=== PATIENT | male | born 1970 | race Caucasian/White ===

== ENCOUNTER 2017-03-01 07:40 | Day surgery (SDC) | payer OTHER ==
[2017-03-01] VITALS (14 sets, daily range): BP systolic 98–133; BP diastolic 66–90; PULSE 58–74; TEMP 36.4–36.9; O2SAT 92–98; Ht 170.2 cm; Wt 82.0 kg
[~2017-03-01] VITALS: Ht 170.2 cm; Wt 82.0 kg
[2017-03-01] MEDS ORDERED: ASCO100T4 PO (08:27)
[2017-03-01] MEDS ORDERED: ACETCAP13 PO (08:27)
[2017-03-01] MEDS ORDERED: KRIL1000 PO (08:27)
[2017-03-01] MEDS ORDERED: ONE A DAY MENS PO (08:27)
[2017-03-01] MEDS ORDERED: [UNRECOGNIZED DRUG - OTHER] PO (08:27)
[2017-03-01] MEDS ORDERED: MAGNESIUM PO (08:27)
[2017-03-01] MEDS ORDERED: SIMV10TA2 PO (08:27)
--- NOTE | 2017-03-01 08:46 | History and Physical ---
History & Physical Date of Service Mar 01, 2017. History & Physical Reason for visit: Bronchoscopy HPI: Patient is 46-year-old male presenting to [facility] today for bronchoscopic evaluation of a ground-glass opacity found on the CTA of chest. The patient is also LOR[facility] [place] as an outpatient. He has history of COPD and increasing shortness of breath. Patient was evaluated by his primary care provider on 12/29/2016 and was noted to have continued chronic cough and shortness Breath. The patient was placed on Breo and Spiriva. He discontinued those medications because he felt that they were not helping his cough and shortness of breath, and that the cost was high. Patient did have an EKG during his visit on 12/06/2016 which showed normal sinus rhythm with nonspecific ST changes his primary care office. Chest x-ray showed suboptimal inspiration with minimal opacities in the bilateral bases. The patient that time completed a course of azithromycin. Pulmonary function study completed on 02/01/2017. Pre Post FVC 1.81/49% 1.86/50% FEV1 1.6/54% 1.69/55% FEV1/FVC ratio 83% 91% TLC 2.08/36% DLCO 33% Alpha 1 antitrypsin was reportedly negative. The patient is a former smoker. He smokes 1 pack per day beginning at age 19 and quit in 2014. He also had second hand smoke exposure as a child due to parents smoking in the house. 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 The patient also reportedly had a 6 minutes walk test at the primary care office during which time his SA O2 was 79% post ambulation. He was noted to have improvement with oxygen supplementation. Cody Celis PA-C recommended that this patient also have Legionella Ag completed, CTA of the chest to R/O PE, and upper GI for concerns of aspiration while eating. CTA of the chest showed ground glass opacification bilaterally with mediastinal and hilar adenopathy. Upper GI study showed diffuse moderate patulousness of the esophagus, some loss of normal peristaltic activity with dysmotility and delayed esophageal emptying , and no evidence of hiatal hernia or GERD. Allergies: No known drug allergies Past medical history: COPD, shortness breath Social history: Former smoker Current meds: ProAir resp click Simvastatin 10 mg daily Physical Exam: General: Patient is awake, alert, cooperative, and in no acute distress. Head: Normocephalic, Atraumatic. ENT: PERRLA, No discharge, EOMI, Sclera normal Neck: Normal ROM. Trachea midline. Respiratory: No respiratory distress. No accessory muscle use. Mild diffuse crackles/rhonchi throughout Cardiovascular: Regular rate and rhythm. Extremities: No edema, cyanosis. Normal ROM Neuro: Alert, Oriented x 3. CN II-XII grossly intact. Sensation and motor function grossly intact. Psych: Mood and affect are normal. Assessment and plan: Patient with persistent cough, shortness of breath, and ground-glass opacity Plan for bronchoscopic evaluation today with BAL for diagnostic purposes.
--- NOTE | 2017-03-01 09:08 | History & Physical Bridge Note ---
H&P Re-Evaluation Bridge Note: I have examined the patient, reviewed the History & Physical and in the interval since the performance of the History & Physical I have noted the following changes of clinical significance: No changes noted
--- NOTE | 2017-03-01 09:09 | Procedure Note ---
Pre-Mod Sedation Assessment General Date of Moderate Sedation: Mar 01, 2017. Vital Signs: Vital Signs Past 12 Hours Date Time Temp Pulse Resp B/P (MAP) Pulse Ox O2 Delivery O2 Flow Rate FiO2 03/01/17 08:46 36.7 72 20 110/70 92 Room Air 03/01/17 07:57 36.7 72 20 110/70 (83) 92 Room Air Review Cardiovascular: regular rate, rhythm, no edema, no gallop, no JVD, no murmur Abdomen: normal bowel sounds, non tender, soft, no organomegaly, no pulsatile mass Lungs: + rhonchi Pre-Sedation Airway Assessment Oral Cavity: WNL Able to Visualize Vocal Cords: Yes Short Thick Neck: No Hx of Sleep Apnea: No Smoking Status: Former Smoker ASA Classification: Class II Procedure Planning Contraindications-for Mod Sed: None Yes Notes The planned sedation has been discussed with the patient and consent obtained. I have identified the patient, determined the appropriateness of sedation and have assessed the patient immediately prior to the procedure. All medicine(s) and interventions are by my order.
[2017-03-01] MEDS ORDERED: NURSING VERBAL MED ORDER ONE ×2 (09:30→10:00)
[2017-03-01] MEDS ORDERED: SODIUM CHLORIDE 0.9% 500ML 500 ML IV ONE (09:30)
--- NOTE | 2017-03-01 09:58 | Bronchoscopy Procedure Note ---
Bronchoscopy Procedure Note .Procedure: Bronchoscopy, conscious sedation, bronchial lavage left upper lobe and right upper lobe Consent: Obtained through the patient placed into the chart Pre-procedural diagnosis: Chronic cough with dyspnea on exertion Post-procedural diagnosis: Chronic cough or dyspnea on exertion Start time: 929 End time: 950 Total time: 21 minutes Analgesia: 2% liquid lidocaine: Via nebulizer 4% gel lidocaine: Via right naris 2% liquid lidocaine: Via bronchoscopy Sedation: Versed IV: 4 mg Fentanyl IV: 100 g Procedure: The Olympus video bronchoscope was used for this procedure and passed down through the right naris Right naris/posterior naris/posterior oropharynx: Anatomically within normal limits Glottis: Anatomically within normal limits Vocal cords: Proper abduction and abduction, anatomically within normal limits Subglottis/trachea/Kimberlee: Anatomically within normal limits Right bronchial tree: Right mainstem bronchus: Anatomically within normal limits Right upper lobe: Anatomically within normal limits Bronchus intermedius: Anatomically within normal limits Right middle lobe: Anatomically within normal limits Right lower lobe: Anatomically within normal limits Findings: No significant findings noted Left bronchial tree: Left mainstem bronchus: Anatomically within normal limits Left upper lobe: Anatomically within normal limits Lingula: Anatomically within normal limits Left lower lobe: Anatomically within normal limits Findings: No significant findings noted Bronchial alveolar lavage: Left upper lobe and right upper lobe EBL: None Complications: None Follow-up: ASU
[2017-03-01] MEDS ORDERED: MIDAZOLAM HCL 5 MG/ML 1 ML VIAL IV ONE (10:00)
[2017-03-01] MEDS ORDERED: FENTANYL CITRATE INJ 50 MCG/1 ML 2 ML VIAL IV ONE (10:00)
--- NOTE | 2017-03-01 11:07 | Discharge Instructions ---
Discharge Instructions Date of Service Mar 01, 2017. Admission Reason for Admission: Sob, Abnormal Find On Imaging, Copd Discharge Discharge Diagnosis / Problem: Persistent cough, SOB Discharge Goals Goal(s): Diagnostic testing Activity Recommendations Activity Limitations: resume your previous activity . Instructions / Follow-Up Instructions / Follow-Up [place] [facility] [place] Diet Patient's current hospital diet: Discharge Diet Recommended Diet: Regular Diet Pending Studies Studies pending at discharge: no Medical Emergencies . Who to Call and When: Medical Emergencies: If at any time you feel your situation is an emergency, please call 911 immediately. . Non-Emergent Contact Non-Emergency issues call your: Primary Care Provider . . "Provider Documentation" section prepared by Natasha Barone. . VTE Core Measure Inpt VTE Proph given/why not?: Treatment not indicated
== END 2017-03-01 12:10 | disposition home or self-care (01) ==
LOC: C.ACU 07:40
PROVIDERS: ATTEND Internal Medicine Critical Care Medicine
DX: R05 Cough (principal); R06.00 Dyspnea, unspecified; J44.9 Chronic obstructive pulmonary disease, unspecified; F17.200 Nicotine dependence, unspecified, uncomplicated; Z79.899 Other long term (current) drug therapy

== ENCOUNTER 2017-03-25 06:46 | Inpatient (IN) | payer OTHER ==
[2017-03-22 07:57] VITALS: BMI 28.0
[~2017-03-25] VITALS: Ht 167.6 cm; Wt 80.5 kg
[2017-03-25] VITALS (11 sets, daily range): BP systolic 101–124; BP diastolic 64–78; PULSE 53–67; TEMP 36.4–37; O2SAT 93–96; Ht 167.6 cm; Wt 80.5 kg
[~2017-03-25 06:46] MED LIST: ACETCAP13 PO; ASCO100T4 PO; GINS1CAP PO; KRIL1000 PO; LACTATED RINGER'S 1000ML 1,000 ML IV SCH; MAGN300C PO; MULT1CAP17 PO; SIMV10TA2 PO
[2017-03-25] MEDS ORDERED: ROCURONIUM BROMIDE 10 MG/ML 5 ML VIAL IV ONE (08:12)
[2017-03-25] MEDS ORDERED: LIDOCAINE HCL 2% 2 ML VIAL (20MG/ML) ONE (08:12)
[2017-03-25] MEDS ORDERED: PROPOFOL IV EMULSION 10 MG/ML 20 ML VIAL IV ONE (08:12)
[2017-03-25] MEDS ORDERED: ONDANSETRON INJ 2 MG/ML 2 ML VIAL ONE (08:12)
[2017-03-25] MEDS ORDERED: DEXAMETHASONE SOD INJ 4 MG/ML VIAL ONE (08:12)
[2017-03-25] MEDS ORDERED: MIDAZOLAM HCL 1 MG/ML 2ML VIAL ONE (08:13)
[2017-03-25] MEDS ORDERED: FENTANYL CITRATE INJ 50 MCG/1 ML 2 ML VIAL ONE (08:13)
[2017-03-25] MEDS ORDERED: SODIUM CHLORIDE 0.9% PF 50 ML VIAL ONE (09:12)
[2017-03-25] MEDS ORDERED: BUPIVACAINE LIPOSOME 1/3% 266 MG/20 ML VIAL INFIL ONE (09:12)
[2017-03-25] MEDS ORDERED: EpHEDrine SULFATE INJ 50 MG/ML AMP IV PRN (09:30)
[2017-03-25] MEDS ORDERED: PHENYLEPHRINE 100MCG/ML 5ML SYR IV PRN (09:30)
[2017-03-25] MEDS ORDERED: ATROPINE SULFATE 0.1 MG/ML 5ML SYR IV PRN (09:30)
[2017-03-25] MEDS ORDERED: ONDANSETRON INJ 2 MG/ML 2 ML VIAL IV PRN ×2 (09:30→10:45)
[2017-03-25] MEDS ORDERED: CEFAZOLIN SOD 1 GM VIAL ONE (09:36)
[2017-03-25] MEDS ORDERED: EpHEDrine SULFATE INJ 50 MG/ML AMP ONE (10:17)
[2017-03-25] MEDS ORDERED: NEOSTIGMINE METHYLSULFATE 5 MG/5 ML SYR ONE (10:17)
[2017-03-25] MEDS ORDERED: GLYCOPYRROLATE INJ 0.2 MG/ML VIAL ONE (10:17)
[2017-03-25] MEDS ORDERED: MoRPHine SULFATE 2 MG/ML CARP IV PRN (10:45)
[2017-03-25] MEDS ORDERED: ALBUTEROL HFA INHALER 8.5 GM INH ONE (10:59)
[2017-03-25] MEDS: HYDROmorphone INJ 2 MG/ML SYR/VIAL IV PRN ×2 (11:02→11:07)
[2017-03-25] MEDS ORDERED: HYDROmorphone INJ 1 MG/ML SYR ONE (11:02)
--- NOTE | 2017-03-25 11:14 | DIAGNOSTIC IMAGING REPORT ---
CHEST ONE VIEW PORTABLE CLINICAL HISTORY: lung bx. COMPARISON STUDY: No previous studies for comparison. FINDINGS: Mild cardiomegaly. Interstitial infiltrative change throughout both hemithoraces. Right-sided chest tube in position. No significant postprocedural right-sided pneumothorax. Minimal subcutaneous emphysema lower aspect right chest. IMPRESSION: No significant pneumothorax status post right chest biopsy. Right chest tube in good position. Diffuse bilateral ankle interstitial change. The above report was generated using voice recognition software. It may contain grammatical, syntax or spelling errors. Electronically signed by: Andrés Birmingham M.D. 03/25/2017 11:13 AM Dictated Date/Time: 03/25/2017 11:12 AM
--- NOTE | 2017-03-25 12:09 | OPERATIVE REPORT ---
DATE OF OPERATION: 03/25/2017 PREOPERATIVE DIAGNOSIS: Probable interstitial lung disease. POSTOPERATIVE DIAGNOSIS: Same. PROCEDURE: Right thoracoscopy with lung biopsy x3. SURGEON: Dr. Peterson. ALUMINUM MOLDING MACHINE OPERATOR: Dr. Godfrey Smith (Gillian OliverRoyal Oak was present for the entire case and handled the camera and was instrumental as the assistant engineer and closed the incision.) ANESTHESIA: General anesthesia endotracheal intubation using a single lumen tube. INDICATION FOR PROCEDURE AND FINDINGS: Collins Adan is a 46-year-old male who has had an acute change in his pulmonary function. He becomes hypoxic and quite dyspneic over the last several months. He was worked up and referred to me for a lung biopsy. On 03/25/2017, the patient underwent an uncomplicated right thoracoscopy. He had no adhesions. His lung looked grossly abnormal. He really had no lymphadenopathy. I performed biopsies of the right lower, middle and upper lobes respectively. He tolerated it well. DESCRIPTION OF PROCEDURE: The patient brought to the operating room, laid in supine position. General anesthesia induced and endotracheal intubation was performed with a single lumen tube. The patient was placed in left lateral decubitus position, right chest prepped, draped in the usual sterile fashion. After antibiotics have been infused prophylactically and appropriate timeout had been called, 5 mm incision was made at the fourth interspace. Carbon dioxide was infused. A 30 degree 5 mm scope was placed. There were no adhesions noted. I placed another 5 mm port about the eighth interspace posterior axillary line and a 12 mm port about the seventh interspace anteriorly just above the diaphragm. The right lower lobe was grasped and an Endo-YANIRA stapler fired several times to remove a good portion of it. Part was sent for culture. I did the same thing to the middle lobe and then the upper lobe. There was no significant bleeding and there was no air leak. A 24-Ugandan chest tube was placed in the anterior inferior incision directed towards the apex and held in place with heavy silk suture. A 4-0 Monocryl was used to close the incisions. He tolerated it well and was extubated in the room with negligible blood loss. I attest to the content of the Intraoperative Record and any orders documented therein. Any exception s are noted below.
[2017-03-25 12:38] LABS: HEMATOCRIT 42.1 % (42-52); MEAN CELL VOLUME 83.5 fL (80-100); MEAN CORPUSCULAR HEMOGLOBIN 29.6 pg (25-34); MEAN CORPUSCULAR HGB CONC 35.4 g/dl (32-36); MEAN PLATELET VOLUME 10.9 fL (7.4-10.4); PLATELET COUNT 207 K/uL (130-400); RED BLOOD COUNT 5.04 M/uL (4.7-6.1); WHITE BLOOD COUNT 11.37 K/uL (4.8-10.8)
[2017-03-25 12:50] LABS: PROTHROMBIN TIME (PATIENT) 10.6 SECONDS (9.0-12.0)
[2017-03-25 13:02] LABS: CREATININE 0.88 mg/dl (0.60-1.40)
--- NOTE | 2017-03-25 13:53 | Anesthesiology Progress Note ---
Anesthesia Post Op Note Date & Time Mar 25, 2017 at 13:52 Vital Signs Pain Intensity: 2.0 Vital Signs Past 12 Hours Date Time Temp Pulse Resp B/P (MAP) Pulse Ox O2 Delivery O2 Flow Rate FiO2 03/25/17 13:46 53 18 124/78 (93) 94 Nasal Cannula 2.0 03/25/17 12:45 37.0 59 16 112/74 (87) 93 Nasal Cannula 2.0 03/25/17 12:20 37.0 60 16 115/72 (86) 95 Nasal Cannula 2.0 03/25/17 11:45 94 Nasal Cannula 2.0 03/25/17 11:45 36.7 64 14 115/73 (87) 94 Nasal Cannula 2.0 03/25/17 11:45 94 Nasal Cannula 2.0 03/25/17 11:30 36.6 62 18 122/75 94 Nasal Cannula 2 03/25/17 11:20 63 16 114/82 97 Nasal Cannula 2 03/25/17 11:10 68 18 122/74 99 Oxymask 10 03/25/17 11:00 67 16 130/78 98 Oxymask 10 03/25/17 10:56 36.7 69 20 115/70 100 Oxymask 10 03/25/17 07:10 36.4 66 20 114/78 (90) 95 Room Air Diffusion Mask Notes Mental Status: alert / awake / arousable, participated in evaluation Pt Amnestic to Procedure: Yes Nausea / Vomiting: adequately controlled Pain: adequately controlled Airway Patency, RR, SpO2: stable & adequate BP & HR: stable & adequate Hydration State: stable & adequate Anesthetic Complications: no major complications apparent
[2017-03-25] MEDS: KETOROLAC TROMETHAMINE 15 MG/ML VIAL IV. SCH ×2 (13:55→21:30)
[2017-03-25] MEDS: METOCLOPRAMIDE HCL INJ 5 MG/ML 2 ML VIAL IV. SCH ×2 (13:55→21:30)
[2017-03-25] MEDS: ACETAMINOPHEN IV 1,000 MG in EMPTY BAG 0 ML IV SCH ×2 (14:00→21:31)
[2017-03-25] MEDS: D5W AND 1/2NSS 1,000 ML IV SCH ×2 (14:01→21:31)
[2017-03-25] MEDS: CEFAZOLIN IV 2,000 MG in SYRINGE 0 ML IV SCH (18:37)
[2017-03-25] MEDS: OXYCODONE HCL IR 5 MG TAB (IMMEDIATE RELEASE) PO PRN (19:09)
[2017-03-25] MEDS ORDERED: SIMVASTATIN 10 MG TAB PO SCH (21:00)
[2017-03-25] MEDS: ACETYLCYSTEINE 600 MG CAP PO SCH (21:27)
[2017-03-25] MEDS: DOCUSATE SODIUM 100 MG CAP PO SCH (21:27)
[2017-03-25] MEDS: ASCORBIC ACID 500 MG TAB PO SCH (21:28)
[2017-03-26] MEDS: CEFAZOLIN IV 2,000 MG in SYRINGE 0 ML IV SCH (01:59)
[2017-03-26 02:03] VITALS: O2SAT 91
[2017-03-26 03:58] VITALS: BP 112/69; PULSE 57; TEMP 36.7; O2SAT 82; O2SAT 94
[2017-03-26] MEDS: ACETAMINOPHEN IV 1,000 MG in EMPTY BAG 0 ML IV SCH (05:35)
[2017-03-26] MEDS: METOCLOPRAMIDE HCL INJ 5 MG/ML 2 ML VIAL IV. SCH (05:35)
[2017-03-26] MEDS: KETOROLAC TROMETHAMINE 15 MG/ML VIAL IV. SCH (05:36)
[2017-03-26 05:47] VITALS: BP 121/71; PULSE 64; TEMP 37.2; O2SAT 93
[2017-03-26] MEDS: OXYCODONE HCL IR 5 MG TAB (IMMEDIATE RELEASE) PO PRN ×2 (06:07→10:57)
[2017-03-26 06:52] VITALS: BP 117/65; PULSE 80; TEMP 37; O2SAT 96
[2017-03-26] MEDS: D5W AND 1/2NSS 1,000 ML IV SCH (06:58)
--- NOTE | 2017-03-26 07:40 | DIAGNOSTIC IMAGING REPORT ---
CHEST ONE VIEW PORTABLE HISTORY: Lung biopsy. COMPARISON: Chest 03/25/2017. FINDINGS: Right-sided chest tube is unchanged in position. There is suture material within the right upper lobe. Low lung volumes. Improved aeration within the bilateral airspace opacities. The heart is stable in size. No definite pneumothorax. IMPRESSION: 1. Improved aeration within the bilateral airspace opacities. 2. No definite pneumothorax. Right-sided chest tube remains unchanged in position. Electronically signed by: Maciel Santiago M.D. 03/26/2017 7:38 AM Dictated Date/Time: 03/26/2017 7:37 AM
[2017-03-26] MEDS ORDERED: NON-FORMULARY MEDICATION (Krill Oil 1,000 MG) PO SCH (09:00)
[2017-03-26] MEDS ORDERED: GINSENG 100 MG PO SCH (09:00)
[2017-03-26] MEDS ORDERED: MAGNESIUM OXIDE 400 MG TAB PO SCH (09:00)
[2017-03-26] MEDS ORDERED: ENOXAPARIN 40 MG/0.4 ML SYR SQ SCH (09:00)
[2017-03-26] MEDS ORDERED: CEROVITE ADV FORMULA TAB PO SCH (09:00)
[2017-03-26] MEDS ORDERED: RXC5 PO (09:17)
--- NOTE | 2017-03-26 09:17 | DIAGNOSTIC IMAGING REPORT ---
CHEST ONE VIEW PORTABLE HISTORY: Status post chest tube removal. COMPARISON: Chest 03/26/2017. FINDINGS: The right-sided chest tube has been removed. There is a tiny right apical pneumothorax which measures a pleural gap of 5 mm. There are low lung findings. The heart remains mildly enlarged. No pleural effusions. Bilateral airspace opacities persist. IMPRESSION: 1. Tiny right apical pneumothorax status post removal of the right-sided chest tube. 2. Bilateral airspace opacities persist. Electronically signed by: Maciel Santiago M.D. 03/26/2017 9:15 AM Dictated Date/Time: 03/26/2017 9:14 AM
--- NOTE | 2017-03-26 09:20 | Discharge Instructions ---
Discharge Instructions Date of Service Mar 26, 2017. Admission Reason for Admission: Lung Nodule Discharge Discharge Diagnosis / Problem: Probable interstitial lung disease. Discharge Goals Goal(s): Learn about illness (Retuen to office next week to get pathology results.) Activity Recommendations Activity Limitations: resume your previous activity . Instructions / Follow-Up Instructions / Follow-Up Remove dressing and shower on 03-29-17. Call Dr Peterson ([phone] ) and page him for any issues. Current Hospital Diet Patient's current hospital diet: Regular Diet Discharge Diet Recommended Diet: Regular Diet Procedures Procedures Performed: Right Video Assisted Thoracoscopy with Lung Biopsy Pending Studies Studies pending at discharge: yes List of pending studies: Pathology and microbiology results. Medical Emergencies . Who to Call and When: Medical Emergencies: If at any time you feel your situation is an emergency, please call 911 immediately. . Non-Emergent Contact Non-Emergency issues call your: Surgeon . "Provider Documentation" section prepared by Ney Peterson. . VTE Core Measure Inpt VTE Proph given/why not?: Enoxaparin (Lovenox)SQ, SCD's
[2017-03-26] MEDS: ASCORBIC ACID 500 MG TAB PO SCH (09:24)
[2017-03-26] MEDS: DOCUSATE SODIUM 100 MG CAP PO SCH (09:25)
[2017-03-26] MEDS: ACETYLCYSTEINE 600 MG CAP PO SCH (09:25)
--- NOTE | 2017-03-26 09:46 | DISCHARGE SUMMARY ---
DISCHARGE DIAGNOSES: 1. Probable interstitial lung disease. 2. Hypoxemia. HOSPITAL COURSE: This is a 46-year-old who has a rather acute onset of shortness of breath and x-ray changes consistent with interstitial lung disease. I brought him to the [facility] on 03/25/2017 and did an uncomplicated biopsy of the right middle, right lower and right upper lobes thoracoscopically. He tolerated this quite well. He really had a very little pain. He had a quiet night. His chest x-ray drained a very little air or fluid. I removed his chest x-ray on the following morning. His chest x-ray showed no evidence of pneumothorax or effusion. His incisions were clean. Pain control was good, although I did give him some oxycodone for pain. I will see him back in the office later this week to go over his pathology results. He is to call me should any issues arise. Wound care instructions were given.
[2017-03-26 10:48] VITALS: BP 117/65; PULSE 80; TEMP 37; O2SAT 96
== END 2017-03-26 11:30 | disposition home or self-care (01) | DRG 168 ==
LOC: C.ACU 06:46 → C.MSN 10:47 → ENRESERV 11:21
PROVIDERS: ADMIT Surgery; ATTEND Surgery
PROC: 0BBC4ZX Excision of Right Upper Lung Lobe, Percutaneous Endoscopic Approach, Diagnostic (ICD-10-PCS; principal; 2017-03-25 09:00)
PROC: 0BBF4ZX Excision of Right Lower Lung Lobe, Percutaneous Endoscopic Approach, Diagnostic (ICD-10-PCS; principal; 2017-03-25 09:00)
PROC: 0BBD4ZX Excision of Right Middle Lung Lobe, Percutaneous Endoscopic Approach, Diagnostic (ICD-10-PCS; principal; 2017-03-25 09:00)
DX: J84.9 Interstitial pulmonary disease, unspecified (principal); R09.02 Hypoxemia

== ENCOUNTER 2017-06-01 12:53 | Inpatient (IN) | payer OTHER ==
[~2017-06-01] VITALS: Ht 167.6 cm; Wt 80.0 kg
[~2017-06-01 12:53] MED LIST changes: -LACTATED RINGER'S 1000ML 1,000 ML IV SCH; +RXC5 PO
[2017-06-01 13:15] VITALS: Ht 167.6 cm; Wt 80.0 kg
[2017-06-01 14:26] LABS: HEMOGLOBIN 15.4 g/dL (14.0-18.0); MEAN CELL VOLUME 85.4 fL (80-100); MEAN CORPUSCULAR HEMOGLOBIN 29.9 pg (25-34); MEAN PLATELET VOLUME 10.2 fL (7.4-10.4); PLATELET COUNT 357 K/uL (130-400); RED CELL DISTRIBUTION WIDTH CV 15.9 % (11.5-14.5); RED CELL DISTRIBUTION WIDTH SD 49.5 fL (36.4-46.3)
--- NOTE | 2017-06-01 14:29 | DIAGNOSTIC IMAGING REPORT ---
CHEST ONE VIEW PORTABLE CLINICAL HISTORY: left sided pneumothorax, dx at [facility] pneumothorax COMPARISON STUDY: 03/26/2017 FINDINGS: Large left-sided pneumothorax. Maximum pleural separation is 5.5 cm. There is mild cardiac mediastinal silhouette shift to the right raise the possibility of a tension component. Diaphragms smooth. There is moderate crowding of the right parenchymal markings. IMPRESSION: Significant left-sided pneumothorax estimated at 75% left thoracic peripheral volume. Mild tension component with a slight cardiac mediastinal silhouette shift to the right. The above report was generated using voice recognition software. It may contain grammatical, syntax or spelling errors. Electronically signed by: Andrés Birmingham M.D. 06/01/2017 2:28 PM Dictated Date/Time: 06/01/2017 2:26 PM
[2017-06-01 14:44] LABS: CALCIUM 9.3 mg/dl (8.5-10.1); CREATININE 0.78 mg/dl (0.60-1.40); POTASSIUM 3.9 mmol/L (3.5-5.1)
[2017-06-01] MEDS ORDERED: XYLOCAINE 1%/SOD BICARB 20 ML VIAL INFIL ONE (14:51)
--- NOTE | 2017-06-01 15:07 | History and Physical ---
History & Physical Date of Service Jun 01, 2017. History & Physical H & P Dictated #[id number]
[2017-06-01] MEDS ORDERED: MoRPHine SULFATE 2 MG/ML CARP IV PRN (15:15)
[2017-06-01] MEDS ORDERED: ONDANSETRON INJ 2 MG/ML 2 ML VIAL IV PRN (15:15)
--- NOTE | 2017-06-01 15:24 | EMERGENCY ROOM VISIT NOTE ---
History First contact with patient: 13:49 Chief Complaint: SHORTNESS OF BREATH Stated Complaint: COLLAPSED LUNGS,SOB Nursing Triage Summary: pt PCP sent in for pneumothorax , pt states lung bx 03/27, increased sob X 1.5 weeks History of Present Illness The patient is a 46 year old male who presents to the Emergency Room with complaints of shortness of breath. The patient reports that he was sent here due to a "collapsed lung." The patient has a history of hypersensitivity pneumonitis and had a lung biopsy performed in March 2017. The patient states he has had increased shortness of breath for the past 10 days. He initially attributed this to a decrease in his steroid dosage from 60 mg prednisone daily to 50 mg prednisone daily. He contacted his assembler dc field ring, who ordered a flu swab and chest x-ray which was performed at [facility] today. He states that he was called by his assembler dc field ring and was told to go to the emergency department immediately. The patient does admit that he has had some left-sided back pain, which he thought was due to sleeping in an uncomfortable position. He saw his chiropractor for this. He has had increased shortness of breath with exertion and at rest. He previously had been on 2 L of oxygen at night, however now has been requiring 2 L of oxygen at all times. He denies any chest pain, cough, fevers or recent illness. He denies history of pneumothorax. Review of Systems A complete 10 point review of systems was reviewed with the patient with pertinent positives and negatives as per history of present illness. All else were negative. Past Medical/Surgical History Medical Problems: (1) Hyperlipidemia (2) Hypersensitivity pneumonitis (3) Interstitial lung disease Surgical Problems: (1) History of lung biopsy Social History Smoking Status: Never Smoker Marital Status: Housing Status: lives with family Current/Historical Medications Scheduled Amoxicillin & Pot Clavulanate (Augmentin 875-125 mg), 1 TAB PO Q12 Prednisone (Prednisone), 20 MG PO TID Simvastatin (Zocor), 10 MG PO DAILY Physical Exam Vital Signs Date Time Temp Pulse Resp B/P (MAP) Pulse Ox O2 Delivery O2 Flow Rate FiO2 06/01/17 14:31 95 3.0 06/01/17 14:05 95 06/01/17 13:52 78 24 149/113 95 Nasal Cannula 3.0 06/01/17 13:15 36.8 94 24 132/87 85 Room Air Physical Exam VITALS: Vitals are noted on the nurse's note and reviewed by myself. Vital signs stable. GENERAL: This is a 46-year-old male, in no acute distress, nondiaphoretic, well- developed well-nourished. SKIN: The skin was without rashes. EARS: External auditory canals clear, tympanic membranes pearly montoya without erythema or effusion bilaterally. EYES: Pupils equal round and reactive to light and accommodation. MOUTH: Mucous membranes moist. NECK: Supple without nuchal rigidity. HEART: Regular rate and rhythm without murmurs gallops or rubs. LUNGS: Coarse breath sounds throughout the right lung field. Significantly decreased breath sounds heard throughout the left lung field. NEURO: Patient was alert and oriented to person place and time. Medical Decision & Procedures ER Provider Diagnostic Interpretation: CHEST ONE VIEW PORTABLE CLINICAL HISTORY: left sided pneumothorax, dx at [facility] pneumothorax COMPARISON STUDY: 03/26/2017 FINDINGS: Large left-sided pneumothorax. Maximum pleural separation is 5.5 cm. There is mild cardiac mediastinal silhouette shift to the right raise the possibility of a tension component. Diaphragms smooth. There is moderate crowding of the right parenchymal markings. IMPRESSION: Significant left-sided pneumothorax estimated at 75% left thoracic peripheral volume. Mild tension component with a slight cardiac mediastinal silhouette shift to the right. Laboratory Results 06/01/17 14:15 Red Blood Count 5.15, Mean Corpuscular Volume 85.4, Mean Corpuscular Hemoglobin 29.9, Mean Corpuscular Hemoglobin Concent 35.0, Mean Platelet Volume 10.2 06/01/17 14:15 Test 06/01/17 14:15 White Blood Count 29.30 K/uL (4.8-10.8) Red Blood Count 5.15 M/uL (4.7-6.1) Hemoglobin 15.4 g/dL (14.0-18.0) Hematocrit 44.0 % (42-52) Mean Corpuscular Volume 85.4 fL (80-100) Mean Corpuscular Hemoglobin 29.9 pg (25-34) Mean Corpuscular Hemoglobin Concent 35.0 g/dl (32-36) Platelet Count 357 K/uL (130-400) Mean Platelet Volume 10.2 fL (7.4-10.4) RDW Standard Deviation 49.5 fL (36.4-46.3) RDW Coefficient of Variation 15.9 % (11.5-14.5) Neutrophils % (Manual) 82.1 % Lymphocytes % (Manual) 11.6 % Monocytes % (Manual) 2.7 % Myelocytes % 3.6 % Neutrophils # (Manual) 24.06 K/uL (1.4-6.5) Total Absolute Neutrophils 24.06 K/uL (1.4-6.5) Lymphocytes # (Manual) 3.40 K/uL (1.2-3.4) Total Absolute Lymphocytes 3.40 K/uL (1.2-3.4) Monocytes # (Manual) 0.79 K/uL (0.11-0.59) Myelocytes # 1.05 K/uL (0-0) Red Blood Cell Morphology Unremarkable Anion Gap 6.0 mmol/L (3-11) Est Creatinine Clear Calc Drug Dose 118.8 ml/min Estimated GFR () 126.3 Estimated GFR (Non- 109.0 BUN/Creatinine Ratio 34.0 (10-20) Calcium Level 9.3 mg/dl (8.5-10.1) Medications Administered Medications (Trade) Dose Ordered Sig/Thea Route Start Time Stop Time Status Last Admin Dose Admin Oxycodone HCl (Roxicodone Immediate Rel Tab) 5 mg Q6H PRN PO 06/01/17 15:15 06/15/17 15:14 06/01/17 21:04 5 MG ED Course The patient was evaluated as above. Labs were drawn and IV access was obtained. Chest x-ray was performed and read by radiology as above. Case was discussed with Dr. Peterson of cardiothoracic surgery. He will evaluate and admit the patient. Medical Decision Differential diagnosis includes pneumothorax, pneumonia, pulmonary embolism, among others. The patient is a 46-year-old male who presents today complaining of shortness of breath. The patient was seen at [facility] and apparently diagnosed with pneumothorax. X-ray here shows large left-sided pneumothorax with tension component. Cardiothoracic surgery was consulted and patient was seen by Dr. Peterson and Godfrey Cornell PA-C and chest tube was inserted. Patient will be admitted for further evaluation and care. The patient's case was reviewed with Dr. Templeton, ED attending physician, who agreed with my assessment and treatment plan. Medication Reconcilliation Current Medication List: was personally reviewed by me Blood Pressure Screening Patient's blood pressure: Elevated blood pressure Blood pressure disposition: Elevated BP felt to be situational Impression Primary Impression: Pneumothorax Departure Information Dispostion Admitted as an inpatient Referrals Cody Celis PA-C (PCP) Patient Instructions My [facility] Problem Qualifiers Primary Impression: Pneumothorax Pneumothorax type: spontaneous, tension Qualified Codes: J93.0 - Spontaneous tension pneumothorax
--- NOTE | 2017-06-01 15:32 | HISTORY & PHYSICAL EXAMINATION ---
DATE OF ADMISSION: 06/01/2017 REASON FOR ADMISSION: Shortness of breath. HISTORY OF PRESENT ILLNESS: This is a 46-year-old male known to our service. The patient underwent a right video-assisted thoracoscopy with lung biopsies in March of 2017. The patient had an uneventful postoperative course and was discharged home on postoperative day #1. The patient's pathology revealed chronic hypersensitivity pneumonitis for which he currently takes 60 mg of prednisone daily and he is followed by Cody Celis and Dr. Pepe Pino of [facility] pulmonary medicine. The patient says that over the past 5-10 days, he has had shortness of breath that is being getting progressively worse. He notes marked dyspnea on exertion with steps and even notes when he bends over he cannot take deep breaths. In addition, the patient reports pleuritic chest pain. Concerning other symptomatology, he denies any fever, shakes, chills. He denies any falls, head injuries, visual changes, tinnitus or sore throat. He denies any neck pain. He does note pleuritic chest pain, worse on the left side. He does note shortness of breath as noted above. He denies any cough or productive sputum. He denies abdominal pain, nausea, vomiting, diarrhea or dysuria. He has no history of stroke, seizure, migraine headache, anxiety, depression, DVT, or PE. In the Emergency Department, the patient did have imaging consisting of a chest x-ray which revealed the patient had a large left-sided pneumothorax. Labs consisted of a CBC where white blood cell count was 29.3; hemoglobin, hematocrit and platelet count were normal; chemistry profile was pending. We have been asked to see the patient for this pneumothorax. PAST MEDICAL HISTORY: Includes: 1. Chronic hypersensitivity pneumonitis. 2. Hypercholesterolemia. PAST SURGICAL HISTORY: Includes: 1. Right video-assisted thoracoscopy with lung biopsy in March 2017. 2. Umbilical herniorrhaphy. 3. Hemorrhoidectomy. ALLERGIES: He denies any medicine allergies. OUTPATIENT MEDICATIONS: Include: 1. Acetylcysteine 600 mg twice daily. 2. Vitamin C 200 mg twice daily. 3. Ginseng 100 mg daily. 4. Krill oil 1000 mg in the morning. 5. Magnesium 300 mg daily. 6. Multivitamin daily. 7. Oxycodone as needed for pain. 8. Zocor 10 mg daily. 9. Prednisone 60 mg daily. SOCIAL HISTORY: The patient is a former smoker, stating that he quit several years ago. FAMILY HISTORY: His father suffered from peripheral vascular disease, but he was also a smoker. REVIEW OF SYSTEMS: As noted above. PHYSICAL EXAMINATION: VITAL SIGNS: He is afebrile. Temperature 36.8, pulse 95 and regular, respirations are 24 and unlabored, blood pressure 149/113, pulse ox 95% on 3 liters. SKIN: Warm with good turgor. GENERAL: He is alert, he is oriented x3, in no distress. HEENT: Head is atraumatic, normocephalic. EYES: Pupils equal, round and reactive to light and accommodation. Extraocular motions are intact. EARS: Auditory acuity is grossly intact. NOSE: Nasal patency was intact. Sinuses are nontender. Mouth is moist without exudates. NECK: Supple. I did not appreciate any JVD. CARDIOVASCULAR: Regular rate and rhythm. LUNGS: Revealed markedly diminished breath sounds on the left. He was not using any accessory muscles to aid in respirations. ABDOMEN: Soft, nontender, nondistended. EXTREMITIES: Revealed no cyanosis or clubbing. NEUROLOGIC: Reveals he was able to move all 4 extremities and follow simple commands without noted focal deficits. DIAGNOSTIC DATA: As noted above. IMPRESSION: A 46-year-old male with left spontaneous pneumothorax. PLAN: We have obtained consent from the patient to perform a left chest tube insertion. We will do this and follow serial chest x-rays and we will provide medicines for analgesics. We will monitor patient's response to a chest tube insertion with further recommendations to follow thereafter. YOSHI
[2017-06-01] MEDS: OXYCODONE HCL IR 5 MG TAB (IMMEDIATE RELEASE) PO PRN ×2 (15:33→21:04)
--- NOTE | 2017-06-01 15:41 | History and Physical ---
History & Physical Date of Service Jun 01, 2017. History & Physical Admit Note: This is a 46-year-old male who underwent a thoracoscopic lung biopsy on the right side on 03/25/2017. It turns out he has a hypersensitivity reaction most likely has been treated with steroids. About 10 days ago he developed acute left-sided chest pain became more short of breath. He attributed this to the weaning of the steroids however, a chest x-ray was obtained to [facility] as an outpatient he was found to have a very large left pneumothorax. Actually oxygenating on room air fairly well even though he is on home O2 and is gotten better with the steroids. We are going to place a chest tube in him. It is important to understand that he has had a pneumothorax for several days and we are not going to hook him to suction and will place a smallbore tube and gradually reexpand his lung. For the rest specifics of his history and physical please see Mr. Enrike Smith's history and physical.
--- NOTE | 2017-06-01 15:43 | Procedure Note ---
Procedure Note Date of Service Jun 01, 2017. Procedure Note The patient the supine position with his left arm raised above his head his left chest was prepped and draped in usual sterile fashion. After appropriate timeout 25-gauge needle and 1% Xylocaine without epinephrine used to anesthetize skin and subcutaneous tissues in the anterior axillary line at about the sixth interspace. A 8 mm incision was made and then Xylocaine was used to anesthetize the intercostal muscles and the pleura. When air was obtained a guidewire was inserted the needle needle removed. A dilator slid over this and then removed and then a 20 Hebrew chest tube with an inner trocar slid over the guidewire and inner cannula and trocar removed. 2 of silk was used to suture this in place. He had an air leak but we quickly clamped the chest tube. Antimicrobial dressings were placed. He tolerated well and his chest x-ray is pending at this time.
--- NOTE | 2017-06-01 15:48 | DIAGNOSTIC IMAGING REPORT ---
CHEST ONE VIEW PORTABLE CLINICAL HISTORY: Pneumothorax. Chest tube placement. COMPARISON STUDY: 06/01/2017 FINDINGS: There is been interval insertion of a left-sided chest tube. There is interval decrease in the size of left pneumothorax with a residual pleural separation of 27 mm. There are bilateral pulmonary airspace opacities.[ IMPRESSION: Interval placement of a left-sided chest tube with interval decrease in the size of the left pneumothorax which currently has a pleural separation of 27 mm Electronically signed by: Snigh Naranjo M.D. 06/01/2017 3:46 PM Dictated Date/Time: 06/01/2017 3:45 PM
[2017-06-01 15:58] VITALS: O2SAT 95; BMI 28.5
[2017-06-01] MEDS ORDERED: PRED20TA PO (16:52)
[2017-06-01] MEDS ORDERED: AMOX875T PO (16:52)
[2017-06-01] MEDS ORDERED: SIMV10TA2 PO (16:52)
[2017-06-01 17:00] VITALS: O2SAT 95
[2017-06-01] MEDS ORDERED: NURSING VERBAL MED ORDER ONE (17:45)
[2017-06-01] MEDS: ACETAMINOPHEN 325 MG TAB PO SCH ×2 (18:00→23:44)
[2017-06-01] MEDS: DOCUSATE SODIUM 100 MG CAP PO SCH (20:58)
[2017-06-01] MEDS: ACETYLCYSTEINE 600 MG CAP PO SCH (20:58)
[2017-06-01] MEDS: SIMVASTATIN 10 MG TAB PO SCH (20:59)
[2017-06-01] MEDS: ASCORBIC ACID 500 MG TAB PO SCH (20:59)
[2017-06-01 23:22] VITALS: BP 109/72; PULSE 57; TEMP 36.6; O2SAT 95
[2017-06-01 23:50] VITALS: O2SAT 95
[2017-06-02] MEDS: OXYCODONE HCL IR 5 MG TAB (IMMEDIATE RELEASE) PO PRN ×2 (04:59→12:53)
[2017-06-02] MEDS: ACETAMINOPHEN 325 MG TAB PO SCH ×4 (05:43→23:48)
--- NOTE | 2017-06-02 07:24 | DIAGNOSTIC IMAGING REPORT ---
CHEST ONE VIEW PORTABLE CLINICAL HISTORY: pneumothorax pneumothorax COMPARISON STUDY: 06/01/2017 FINDINGS: Repositioning of the patient's left chest tube to a more lateral position. Left lung has partially reexpanded. There is a small residual pneumothorax. Pleural separation currently is a 1 cm diminished from 2.7 cm. Cardiomediastinal silhouette is in a more midline position. Parenchymal prominence throughout both hemithoraces persist. IMPRESSION: Interval decrease in size of a left-sided pneumothorax, now with a maximum pleural separation of 1 cm. All remaining components of the study are stable. Improved central location of the cardiomediastinal silhouette. The above report was generated using voice recognition software. It may contain grammatical, syntax or spelling errors. Electronically signed by: Andrés Birmingham M.D. 06/02/2017 7:23 AM Dictated Date/Time: 06/02/2017 7:19 AM
[2017-06-02 07:44] VITALS: BP 114/77; PULSE 49; TEMP 36.4; O2SAT 98
--- NOTE | 2017-06-02 08:51 | SURGERY PROGRESS NOTE ---
DATE: 06/02/2017 Mr. Adan looks good today. He has been up ambulating. On room air he drops down to 88%. His lung looks much improved. It is not quite expanded, but he has not been on suction. We are going to start that today. It does not appear he has an air leak. If his lung is completely expanded tomorrow and he has no air leak, we will remove the chest tube and allow him to be discharged. He has improved from a pulmonary function standpoint. The fact of the matter is, this patient was quite short of breath with any type of exertion; however, he was operating on just 1 lung. I think that he will improve greatly now that his lung has expanded. We may discharge him in the morning.
[2017-06-02] MEDS ORDERED: GINSENG 100 MG PO SCH (09:00)
[2017-06-02] MEDS ORDERED: NON-FORMULARY MEDICATION (Krill Oil 1,000 MG) PO SCH (09:00)
[2017-06-02] MEDS: MAGNESIUM OXIDE 400 MG TAB PO SCH (09:26)
[2017-06-02] MEDS: ACETYLCYSTEINE 600 MG CAP PO SCH ×2 (09:27→21:18)
[2017-06-02] MEDS: ASCORBIC ACID 500 MG TAB PO SCH ×2 (09:27→21:18)
[2017-06-02] MEDS: CEROVITE ADV FORMULA TAB PO SCH (09:28)
[2017-06-02] MEDS: DOCUSATE SODIUM 100 MG CAP PO SCH ×2 (09:28→21:19)
[2017-06-02 10:00] VITALS: O2SAT 91
[2017-06-02 10:12] VITALS: O2SAT 77
[2017-06-02] MEDS: KETOROLAC TROMETHAMINE 15 MG/ML VIAL IV PRN (13:34)
--- NOTE | 2017-06-02 15:04 | DIAGNOSTIC IMAGING REPORT ---
CT SCAN OF THE CHEST WITHOUT IV CONTRAST CLINICAL HISTORY: Pneumothorax. COMPARISON STUDY: Chest x-ray dated 06/02/2017. Chest CT dated 01/24/2017. TECHNIQUE: CT scan of the thorax was performed from the thoracic inlet to the upper abdomen. Images are reviewed in the axial, sagittal, and coronal planes. IV contrast was not administered for this examination as per the referring clinician. A dose lowering technique was utilized adhering to the principles of ALARA. CT DOSE: 549.57 mGycm FINDINGS: Thyroid: Imaged portions of the thyroid gland are normal in size and heterogeneous in attenuation. Thoracic aorta: The thoracic aorta is normal in caliber and demonstrates 4-vessel variant arch anatomy. Heart: The heart is mildly enlarged and without pericardial effusion. There are coronary artery calcifications. The pulmonary trunk is dilated, measuring 3.7 cm in transverse diameter. This suggests pulmonary artery hypertension. Lungs and pleural spaces: A left-sided chest tube is in place there is a trace residual left-sided pneumothorax. A chest brace left pleural effusion is identified. Suture material is seen in the right lower lobe. There is extensive subpleural reticulation with diffuse groundglass consolidation seen throughout both lungs. Mild traction bronchiectasis is noted in the lower lobes. No honeycombing is identified. Numerous pulmonary nodules are new from 01/24/2017. The largest is in the right upper lobe seen on image #105 and measures 2.4 x 1.9 cm. Nodules in the left upper lobe measuring 1.9 cm on image #83 and 1.5 cm on image #54 demonstrates central cavitation. Additional subcentimeter nodules are seen in the left upper lobe on images #57 and 70, and in the right middle lobe on image #130. 1 of the subcentimeter nodules also shows central cavitation. The trachea and central airways are clear. Mediastinum: There are scattered subcentimeter mediastinal lymph nodes. These are not pathologically enlarged by size criteria. Angelica: Not well assessed without IV contrast. Axillae: There is no axillary lymphadenopathy. Upper abdomen: Partially visualized upper abdominal viscera is within normal limits. Skeletal structures: No lytic or blastic bony lesions are seen. IMPRESSION: 1. A left-sided chest tube is in place as detailed above. There is a trace residual left pneumothorax. 2. Extensive parenchymal changes as above with evidence of previous surgical/postbiopsy change. The appearance is nonspecific, and could represent chronic interstitial/fibrotic lung disease or possibly a chronic hypersensitivity pneumonitis. Correlate with lung biopsy results will be essential. 3. There are numerous (at least 6) new pulmonary nodules as compared to 01/24/2017. At least 3 of these demonstrate central cavitation, and the top differential considerations include septic emboli or an atypical/fungal pneumonia. Neoplasm is considered unlikely given the rapid change from 01/24/2017. Clinical correlation will be required. 4. Trace left pleural effusion. Electronically signed by: Yakov Sexton M.D. 06/02/2017 3:02 PM Dictated Date/Time: 06/02/2017 2:41 PM
[2017-06-02 15:40] VITALS: BP 137/95; PULSE 63; TEMP 36.5; O2SAT 92
[2017-06-02 20:10] VITALS: O2SAT 94
[2017-06-02] MEDS: SIMVASTATIN 10 MG TAB PO SCH (21:18)
[2017-06-02 22:45] VITALS: BP 128/75; PULSE 48; TEMP 36.7; O2SAT 97
[2017-06-03] MEDS: OXYCODONE HCL IR 5 MG TAB (IMMEDIATE RELEASE) PO PRN ×3 (04:36→23:36)
[2017-06-03] MEDS: ACETAMINOPHEN 325 MG TAB PO SCH ×4 (05:48→23:34)
--- NOTE | 2017-06-03 06:59 | DIAGNOSTIC IMAGING REPORT ---
CHEST ONE VIEW PORTABLE CLINICAL HISTORY: pneumothorax dyspnea COMPARISON STUDY: 06/02/2017 FINDINGS: Left chest tube unchanged in location. Small left pneumothorax minimally diminished in volume. Pleural separation currently is 7 mm diminished from 10 mm. Parenchymal changes are stable. IMPRESSION: Slight improvement in a small left apical pneumothorax. Study is otherwise unchanged The above report was generated using voice recognition software. It may contain grammatical, syntax or spelling errors. Electronically signed by: Andrés Birmingham M.D. 06/03/2017 6:57 AM Dictated Date/Time: 06/03/2017 6:56 AM
--- NOTE | 2017-06-03 07:45 | SURGERY PROGRESS NOTE ---
DATE: 06/03/2017 Mr. Adan was seen today. His air leak is smaller today. I am a bit concerned about him. Clinically he is stable and he use very little in the way of oxygen; however, his CT scan was concerning to me. Not because of the changes in his lung which we expected and did the biopsy for a couple of months ago from his hypersensitivity reaction, but the fact that he has developed the cystic lesions. This may be evolution of his hypersensitivity reaction changes in his lung parenchyma. There is a significant cyst in his left upper lobe posteriorly which may have been responsible for the pneumothorax. As the air leak is better, we are going to just watch him with the chest tube. However, I explained to him that should this persist that he would need a thoracoscopy repair of this.
[2017-06-03 08:09] VITALS: BP 133/81; PULSE 56; TEMP 36.8; O2SAT 97
[2017-06-03] MEDS: ASCORBIC ACID 500 MG TAB PO SCH ×2 (08:11→21:06)
[2017-06-03] MEDS: DOCUSATE SODIUM 100 MG CAP PO SCH ×2 (08:11→21:06)
[2017-06-03] MEDS: MAGNESIUM OXIDE 400 MG TAB PO SCH (08:11)
[2017-06-03] MEDS: CEROVITE ADV FORMULA TAB PO SCH (08:11)
[2017-06-03] MEDS: ACETYLCYSTEINE 600 MG CAP PO SCH ×2 (08:11→21:06)
[2017-06-03 08:39] VITALS: O2SAT 97
[2017-06-03 15:43] VITALS: BP 130/89; PULSE 55; TEMP 36.6; O2SAT 98
[2017-06-03 16:20] VITALS: O2SAT 94
[2017-06-03] MEDS: SIMVASTATIN 10 MG TAB PO SCH (21:06)
[2017-06-03 23:10] VITALS: BP 133/81; PULSE 53; TEMP 36.7; O2SAT 98
[2017-06-04] MEDS: ACETAMINOPHEN 325 MG TAB PO SCH ×4 (05:33→23:30)
[2017-06-04] MEDS: OXYCODONE HCL IR 5 MG TAB (IMMEDIATE RELEASE) PO PRN ×2 (05:54→16:03)
[2017-06-04 07:07] VITALS: BP 125/84; PULSE 90; TEMP 36.6; O2SAT 94
--- NOTE | 2017-06-04 07:20 | DIAGNOSTIC IMAGING REPORT ---
CHEST ONE VIEW PORTABLE CLINICAL HISTORY: Pneumothorax. COMPARISON STUDY: Chest CT June 02, 2017 and chest radiograph June 03, 2017. FINDINGS: A left chest tube is in place. A small left pneumothorax has increased in size since prior exam. Superior pleural separation measures 1.2 cm. Several pulmonary nodules are again noted. Diffuse interstitial thickening is noted. Cardiomediastinal silhouette is stable. There has been interval development of a small right pneumothorax with superior pleural separation of 1.3 cm. IMPRESSION: 1. Interval development of a small right pneumothorax. 2. Slight increase in size of a small left pneumothorax with left chest tube in place. 3. Redemonstration of several nodular opacities and diffuse interstitial thickening which suggests interstitial lung disease. Electronically signed by: Landen Betancourt M.D. 06/04/2017 7:18 AM Dictated Date/Time: 06/04/2017 7:15 AM
[2017-06-04] MEDS: KETOROLAC TROMETHAMINE 15 MG/ML VIAL IV PRN (08:47)
[2017-06-04] MEDS: MAGNESIUM OXIDE 400 MG TAB PO SCH (08:48)
[2017-06-04] MEDS: DOCUSATE SODIUM 100 MG CAP PO SCH ×2 (08:48→20:37)
[2017-06-04] MEDS: CEROVITE ADV FORMULA TAB PO SCH (08:48)
[2017-06-04] MEDS: ASCORBIC ACID 500 MG TAB PO SCH ×2 (08:49→20:37)
[2017-06-04] MEDS: ACETYLCYSTEINE 600 MG CAP PO SCH ×2 (08:49→20:37)
[2017-06-04] MEDS: ENOXAPARIN 40 MG/0.4 ML SYR SQ SCH (09:05)
--- NOTE | 2017-06-04 11:03 | Surgery Progress Note ---
Subjective Date of Service: Jun 04, 2017. Pt. denies CP or SOB. He is tolerating diet. He has been ambulating without difficulty. Objective Vitals Date Time Temp Pulse Resp B/P (MAP) Pulse Ox O2 Delivery O2 Flow Rate FiO2 06/04/17 08:40 Nasal Cannula 2.0 06/04/17 07:07 36.6 90 18 125/84 (98) 94 Nasal Cannula 2.0 06/03/17 23:45 Nasal Cannula 2.0 06/03/17 23:10 36.7 53 16 133/81 (98) 98 Nasal Cannula 2.0 06/03/17 16:20 94 Nasal Cannula 2.0 06/03/17 15:53 Nasal Cannula 2.0 06/03/17 15:43 36.6 55 18 130/89 (103) 98 Nasal Cannula 2.0 Physical Exam General: + well developed, + well nourished CV: + RRR Pulmonary: + pertinent finding (BS are decreaded at abses with occaisional rhonchi noted.), No accessory muscle use, No respiratory distress Extremities: No calf tenderness Neurologic: + alert & oriented x 3 Radiology CXR today shows small left pneumothorax Drains / Tubes chest tube (108 cc drainage last 24 hours; 24 cc last shift--see A/P for additional description ) Assessment & Plan 46 year old male with left spontaneous pneumothorax -CT inserted (06/01/17): -air leak noted this am -RN called with concern about possible pleurovac malfunction approx. 3 hours after my initial visit: -pleurevac switched to new device -upon my return visit, the new pleurevac noted to be functioning normally -dressing removed from CT and all connections inspected: -CT noted to be functioning appropriately -new dressing applied -will continue to follow serial CXR and continue CT alternating suction with water seal: -pt. may require surgical intervention, but this is yet to be determined -continue analgesics -encourage ambulation and use of IS OTHER -lovenox in place for DVT prevention
[2017-06-04 15:22] VITALS: BP 118/81; PULSE 93; TEMP 36.7; O2SAT 97
[2017-06-04] MEDS: SIMVASTATIN 10 MG TAB PO SCH (20:37)
[2017-06-04 22:51] VITALS: BP 119/76; PULSE 64; TEMP 36.7; O2SAT 95
[2017-06-05] MEDS: OXYCODONE HCL IR 5 MG TAB (IMMEDIATE RELEASE) PO PRN (05:23)
[2017-06-05] MEDS: ACETAMINOPHEN 325 MG TAB PO SCH ×3 (05:23→17:49)
--- NOTE | 2017-06-05 07:39 | DIAGNOSTIC IMAGING REPORT ---
CHEST ONE VIEW PORTABLE CLINICAL HISTORY: pneumothorax COMPARISON STUDY: June 04, 2017 FINDINGS: There is a poor inspiration. There is interval decrease in the size of a left apical pneumothorax which has a pleural separation of 8 mm. There is no change the position of the left-sided chest tube. There is a tiny residual 4 mm left apical pneumothorax. There is a stable 3 cm right midlung zone nodular opacity. Nodular airspace opacities at the left lung base persist.[ There is stable interstitial thickening IMPRESSION: 1. Stable interstitial thickening and bilateral nodules 2. No change in the position of the left-sided chest tube 3. Interval decrease in the size of the small biapical pneumothoraces Electronically signed by: Singh Naranjo M.D. 06/05/2017 7:38 AM Dictated Date/Time: 06/05/2017 7:35 AM
[2017-06-05 07:48] VITALS: BP 122/83; PULSE 76; TEMP 37.1; O2SAT 96
--- NOTE | 2017-06-05 08:23 | Surgery Progress Note ---
Subjective Date of Service: Jun 05, 2017. Pt. notes a good night. He breathing has improved last 24 hours. No CP, fevers , shakes, chills. Objective Vitals Date Time Temp Pulse Resp B/P (MAP) Pulse Ox O2 Delivery O2 Flow Rate FiO2 06/05/17 07:48 37.1 76 18 122/83 (96) 96 2.0 06/04/17 23:50 Nasal Cannula 2.0 06/04/17 22:51 36.7 64 17 119/76 (90) 95 Nasal Cannula 2.0 06/04/17 19:56 Nasal Cannula 2.0 Humidified Oxygen 06/04/17 16:00 Nasal Cannula 2.0 Humidified Oxygen 06/04/17 15:22 36.7 93 18 118/81 (93) 97 Nasal Cannula 2.0 06/04/17 08:40 Nasal Cannula 2.0 Physical Exam General: + well developed, + well nourished CV: + RRR Pulmonary: + rhonchi, No accessory muscle use, No respiratory distress Extremities: No calf tenderness Neurologic: + alert & oriented x 3 Radiology CXR today shows small bi-apical pneumothoraces Drains / Tubes chest tube (41 cc drainage last 24 hours; no air leak) Assessment & Plan 46 year old male with left spontaneous pneumothorax -CT inserted (06/01/17): -air leak has subsided -CT to remain in today: -will repeat CXR tomorrow AM -if air leak return pt. may require surgical intervention -continue analgesics -encourage ambulation and use of IS OTHER -lovenox in place for DVT prevention
[2017-06-05] MEDS: ACETYLCYSTEINE 600 MG CAP PO SCH ×2 (09:33→20:29)
[2017-06-05] MEDS: DOCUSATE SODIUM 100 MG CAP PO SCH ×2 (09:33→20:29)
[2017-06-05] MEDS: CEROVITE ADV FORMULA TAB PO SCH (09:34)
[2017-06-05] MEDS: MAGNESIUM OXIDE 400 MG TAB PO SCH (09:34)
[2017-06-05] MEDS: ASCORBIC ACID 500 MG TAB PO SCH ×2 (09:35→20:29)
[2017-06-05] MEDS: ENOXAPARIN 40 MG/0.4 ML SYR SQ SCH (09:36)
[2017-06-05 11:30] VITALS: BP 119/82; PULSE 95; TEMP 36.7; O2SAT 94
--- NOTE | 2017-06-05 12:03 | DIAGNOSTIC IMAGING REPORT ---
CHEST ONE VIEW PORTABLE CLINICAL HISTORY: SOB, chest tightness COMPARISON STUDY: June 05, 2017 FINDINGS: The left-sided chest tube remains unchanged in position. No left-sided pneumothorax is visualized. There is a residual tiny right apical pneumothorax. There are low lung volumes. There is a stable 3 cm nodular opacity within the right midlung zone. There is stable left basilar nodular airspace opacities.[ IMPRESSION: The previously identified tiny left apical pneumothorax is no longer visualized. The chest remains otherwise stable Electronically signed by: Singh Naranjo M.D. 06/05/2017 12:02 PM Dictated Date/Time: 06/05/2017 12:01 PM
--- NOTE | 2017-06-05 12:08 | Progress Note ---
Progress Note Date of Service Jun 05, 2017. Progress Note Called by RN that pt. concerned his CT not working and breathing feels tight. Pt. seen and examined. Vital reviewed and noted to be stable. Pt. has coarse BS with rhonchi similar to this am. A portable CXR was obtained and showed lung was fully expanded and CT was in position. On exam the pt. had no crepitus noted in soft tissue of chest wall, back, chest, face, or neck. I provided reassurance and discussed case with RN.
[2017-06-05] MEDS ORDERED: POLYETHYLENE (MIRALAX) 17 GM PACK PO ONE (12:15)
[2017-06-05] MEDS: KETOROLAC TROMETHAMINE 15 MG/ML VIAL IV PRN (15:35)
[2017-06-05 15:43] VITALS: BP 121/85; PULSE 87; TEMP 36.3; O2SAT 97
[2017-06-05] MEDS: SIMVASTATIN 10 MG TAB PO SCH (20:28)
[2017-06-05 22:55] VITALS: BP 131/80; PULSE 62; TEMP 36.7; O2SAT 99
[2017-06-06] MEDS: ACETAMINOPHEN 325 MG TAB PO SCH ×3 (00:11→11:52)
--- NOTE | 2017-06-06 07:43 | DIAGNOSTIC IMAGING REPORT ---
CHEST ONE VIEW PORTABLE CLINICAL HISTORY: pneumothorax COMPARISON STUDY: Chest radiograph June 05, 2017. FINDINGS: Left apical chest tube remains in place. There is no pneumothorax. A nodular right lateral midlung density persists. Diffuse interstitial thickening suggests interstitial lung disease. Diminished lung volumes are unchanged. Cardiomediastinal silhouette is stable. IMPRESSION: 1. Left chest tube in place. No pneumothorax. 2. Redemonstration of an indeterminate nodular right midlung density which be assessed on subsequent exams. 3. Interstitial thickening with diminished lung volumes consistent with interstitial lung disease. Electronically signed by: Landen Betancourt M.D. 06/06/2017 7:42 AM Dictated Date/Time: 06/06/2017 7:40 AM
[2017-06-06 08:30] VITALS: BP 121/84; PULSE 74; TEMP 36.8; O2SAT 96
[2017-06-06 08:37] VITALS: O2SAT 96
[2017-06-06] MEDS: MAGNESIUM OXIDE 400 MG TAB PO SCH (08:38)
[2017-06-06] MEDS: DOCUSATE SODIUM 100 MG CAP PO SCH (08:38)
[2017-06-06] MEDS: ASCORBIC ACID 500 MG TAB PO SCH (08:38)
[2017-06-06] MEDS: ENOXAPARIN 40 MG/0.4 ML SYR SQ SCH (08:38)
[2017-06-06] MEDS: ACETYLCYSTEINE 600 MG CAP PO SCH (08:38)
[2017-06-06] MEDS: CEROVITE ADV FORMULA TAB PO SCH (08:38)
[2017-06-06] MEDS ORDERED: POLYETHYLENE (MIRALAX) 17 GM PACK PO SCH (09:00)
--- NOTE | 2017-06-06 11:47 | DIAGNOSTIC IMAGING REPORT ---
SNIFF TEST CLINICAL HISTORY: Elevated diaphragm. COMPARISON STUDY: Chest CT May 02, 2007 and chest radiograph June 06, 2017. FLUOROSCOPY TIME: 0.1 minutes. FINDINGS: Fluoroscopy of the hemidiaphragms during inspiration and expiration as well as sniffing was performed. There was no paradoxical motion of the hemidiaphragms. Excursion of both hemidiaphragms was slightly diminished. IMPRESSION: No evidence of hemidiaphragm paralysis. Symmetric mildly diminished excursion of both hemidiaphragms. Electronically signed by: Landen Betancourt M.D. 06/06/2017 11:45 AM Dictated Date/Time: 06/06/2017 11:43 AM
--- NOTE | 2017-06-06 12:26 | DIAGNOSTIC IMAGING REPORT ---
CHEST 2 VIEWS ROUTINE CLINICAL HISTORY: Pneumothorax. COMPARISON STUDY: Chest radiograph June 06, 2017 7:11 AM. FINDINGS: The left chest tube has been removed. No left pneumothorax is visualized. A nodular right lower lung density is unchanged. Diffuse interstitial thickening is noted. There may be a trace left pleural effusion. Cardiomediastinal silhouette is stable. There may be a trace right pneumothorax. IMPRESSION: 1. No left pneumothorax following chest tube removal. 2. Suspected trace right pneumothorax. 3. Diffuse interstitial thickening consistent with interstitial lung disease. 4. No change in a nodular indeterminate right lower lung density. Electronically signed by: Landen Betancourt M.D. 06/06/2017 12:25 PM Dictated Date/Time: 06/06/2017 12:23 PM
--- NOTE | 2017-06-06 12:31 | Discharge Instructions ---
Discharge Instructions Date of Service Jun 06, 2017. Admission Reason for Admission: Pneumothorax Discharge Discharge Diagnosis / Problem: Pneumothorax Discharge Goals Goal(s): Decrease discomfort, Improve function Activity Recommendations Activity Limitations: as noted below 1. Do not fly in an airplane until cleared to do so by Dr. Peterson. 2. You may remove dressing in 3 days and shower thereafter. No tub baths. . Instructions / Follow-Up Instructions / Follow-Up 1. Office appointment with Dr. Peterson in 1 week. Office will call you with date and time of appointment. GO to hospital 1 hour before appointment to have a chest x-ray taken. 2. Your family support specialist, Cody Celis, will assist you with obtaining an oxygen concentrator. Please contact his office regarding the status of this. Current Hospital Diet Patient's current hospital diet: Regular Diet Discharge Diet Recommended Diet: Regular Diet Pending Studies Studies pending at discharge: no Medical Emergencies . Who to Call and When: Medical Emergencies: If at any time you feel your situation is an emergency, please call 911 immediately. . Non-Emergent Contact Non-Emergency issues call your: Surgeon Call Non-Emergent contact if: wound has increased drainage . "Provider Documentation" section prepared by Godfrey Smith. . VTE Core Measure Inpt VTE Proph given/why not?: Enoxaparin (Lovenox)SQ
[2017-06-06 15:09] VITALS: BP 116/75; PULSE 67; TEMP 37.3; O2SAT 97
--- NOTE | 2017-06-06 15:17 | Discharge Summary ---
Discharge Summary Date of Service Jun 06, 2017. Discharge Summary Date of admission: 06/01/2017 Date of discharge: 06/06/2017 Reason for admission: Spontaneous left pneumothorax Hospital course: This is a 46-year-old male that I met a few months ago when he is referred by Dr. Cody Celis from the pulmonary department for a lung biopsy. Patient had hypoxia and infiltrates of unknown etiology. On 03/25/2017, I performed a thoracoscopic biopsy on the right side. It appears that he has a hypersensitivity pneumonitis. He has been on steroids and done well until recently when he suddenly began to develop marked dyspnea on exertion left chest pain. He was found to have a pneumothorax. He had suffered with the symptoms for 8-10 days. We inserted a small bore chest tube and his lung reexpanded slowly. I was surprised when we repeated the CT scan. Much of the infiltrative process is improved on steroids but he does have some cyst that he did not have before. He also had a sizable air leak however this settled down over the weekend and we were able to remove his chest tube today. Follow-up chest x-ray looked good. I will follow him up next week with a chest x-ray. I have also instructed him to call me should any problems arise. I had a long discussion with the patient and his significant other (greater than 30 minutes all told) and went over wound care, showering, and physical limitations,
[2017-06-06 16:42] VITALS: BP 116/75; PULSE 67; TEMP 37.3; O2SAT 97
== END 2017-06-06 17:15 | disposition home or self-care (01) | DRG 200 ==
LOC: C.EDB 12:56 → C.MSN 15:29 → ENRESERV 15:41 → C.MSN 06-05 11:16
PROVIDERS: ADMIT Surgery; ATTEND Surgery
PROC: 0WHB3YZ Insertion of Other Device into Left Pleural Cavity, Percutaneous Approach (ICD-10-PCS; principal; 2017-06-01)
DX: J93.83 Other pneumothorax (principal); J67.9 Hypersensitivity pneumonitis due to unspecified organic dust; J95.812 Postprocedural air leak; E78.5 Hyperlipidemia, unspecified; Z87.891 Personal history of nicotine dependence; Y83.8 Other surgical procedures as the cause of abnormal reaction of the patient, or of later complication, without mention of misadventure at the time of the procedure; Y92.230 Patient room in hospital as the place of occurrence of the external cause

== ENCOUNTER 2017-06-12 12:18 | Emergency (ER) | payer OTHER ==
[~2017-06-12] VITALS: Ht 167.6 cm; Wt 76.9 kg
[~2017-06-12 12:18] MED LIST changes: -ACETCAP13 PO; -ASCO100T4 PO; -GINS1CAP PO; -KRIL1000 PO; -MAGN300C PO; -MULT1CAP17 PO; +PRED20TA PO; -RXC5 PO
[2017-06-12 12:25] VITALS: TEMP 36.8
[2017-06-12] MEDS ORDERED: ALBUT/IPRATROP 3MG/0.5MG NEB 3 ML VIAL INH STA (12:41)
--- NOTE | 2017-06-12 12:52 | DIAGNOSTIC IMAGING REPORT ---
SINGLE VIEW CHEST CLINICAL HISTORY: Atypical chest pain. FINDINGS: An AP, portable, upright chest radiograph is compared to study dated 06/06/2017 and correlated with chest CT dated 06/02/2017. The examination is degraded by portable technique and patient rotation. The cardiomediastinal silhouette is unremarkable. Changes of chronic interstitial lung disease are similar to previous. There is multifocal patchy airspace consolidation, greatest in the right midlung and in the peripheral left lung. Small pleural effusions are suspected. No pneumothorax is seen. The bony thorax is grossly intact. IMPRESSION: 1. Changes of chronic interstitial lung disease are similar to previous. 2. There is increasingly confluent bilateral airspace consolidation as compared to the 06/06/2017 examination. Correlate clinically for evidence of pneumonia. Radiographic follow-up to resolution is recommended. 3. Suspect small pleural effusions. Electronically signed by: Yakov Sexton M.D. 06/12/2017 12:50 PM Dictated Date/Time: 06/12/2017 12:48 PM
[2017-06-12 12:55] LABS: HEMATOCRIT 40.7 % (42-52); HEMOGLOBIN 14.4 g/dL (14.0-18.0); MEAN CELL VOLUME 84.3 fL (80-100); MEAN CORPUSCULAR HEMOGLOBIN 29.8 pg (25-34); MEAN CORPUSCULAR HGB CONC 35.4 g/dl (32-36); MEAN PLATELET VOLUME 10.2 fL (7.4-10.4); PLATELET COUNT 436 K/uL (130-400); RED CELL DISTRIBUTION WIDTH CV 15.8 % (11.5-14.5); RED CELL DISTRIBUTION WIDTH SD 48.5 fL (36.4-46.3); WHITE BLOOD COUNT 29.96 K/uL (4.8-10.8)
--- NOTE | 2017-06-12 12:55 | EMERGENCY ROOM VISIT NOTE ---
History Report prepared by [place]: Alex Castillo Under the Supervision of: Dr. Cuauhtemoc Charles D.O. First contact with patient: 12:29 Chief Complaint: SHORTNESS OF BREATH Stated Complaint: SOB, FAST HEART RATE, PAIN History of Present Illness The patient is a 46 year old male who presents to the Emergency Room with complaints of worsening shortness of breath for the past couple of days. The patient's states that the patient was released from the hospital 6 days ago after having a pneumothorax and a chest tube placed. The patient is complaining of a sorethroat and a very productive cough. He has been on steroids for breathing problems, though he does not use any nebulizers. The patient is a former smoker, and he currently works in heating and air conditioning. The patient's additionally states that the patient had the flu in May, and he has taken 3 doses of Tamiflu yesterday and today. Source of History: patient Onset: the past couple of days Position: other (global) Quality: other (shortness of breath) Timing: worsening Associated Symptoms: + sorethroat, + cough Review of Systems See HPI for pertinent positives & negatives. A total of 10 systems reviewed and were otherwise negative. Past Medical & Surgical Medical Problems: (1) Hyperlipidemia (2) Hypersensitivity pneumonitis (3) Interstitial lung disease Surgical Problems: (1) History of lung biopsy Social History Smoking Status: Current Every Day Smoker Marital Status: Housing Status: lives with family Current/Historical Medications Scheduled Acetylcysteine (Nutrient) (Nac 600), 1 CAP PO BID Ascorbic Acid (Vitamin C 500 mg), 1 CAP PO BID Cholecalciferol (Vitamin D3), 1 TAB PO QAM Multiple Vitamins W/ Minerals (Multi For Him), 1 TAB PO QAM Oseltamivir Phosphate (Tamiflu), 75 MG PO BID Prednisone (Prednisone), 20 MG PO TID Simvastatin (Zocor), 10 MG PO HS Allergies Coded Allergies: No Known Allergies (Unverified , 06/12/17) Physical Exam Vital Signs Date Time Temp Pulse Resp B/P (MAP) Pulse Ox O2 Delivery O2 Flow Rate FiO2 06/12/17 15:34 100 18 129/80 98 Non-Rebreather 10.0 06/12/17 15:20 102 36 115/88 97 Non-Rebreather 10.0 06/12/17 14:48 112 36 90 Mask 5.0 06/12/17 14:22 110 36 159/88 87 Mask 6.0 06/12/17 14:17 112 34 88 Mask 5.0 06/12/17 14:05 85 Mask 5.0 06/12/17 13:38 123 36 91 Mask 5.0 06/12/17 13:35 90 Mask 5.0 06/12/17 13:23 127 39 89 Mask 5.0 06/12/17 13:16 127/91 06/12/17 13:08 127 35 93 Mask 5.0 06/12/17 13:03 125 34 93 Nasal Cannula 5.0 06/12/17 13:03 93 Nebulizer 5.0 06/12/17 13:01 117/80 06/12/17 12:56 118/85 06/12/17 12:48 30 06/12/17 12:41 88 Nasal Cannula 6.0 06/12/17 12:39 137 06/12/17 12:37 178/139 06/12/17 12:25 36.8 142 36 119/73 73 Nasal Cannula 3.0 Physical Exam GENERAL: Patient is awake, alert, very anxious appearing, and appears to be in moderate pain. EYES: The conjunctivae are clear. The pupils are round and reactive. EARS, NOSE, MOUTH AND THROAT: The nose is without any evidence of any deformity. Mucous membranes are moist tongue is midline NECK: The neck is nontender and supple. RESPIRATORY: Lung sounds diminished throughout. There was no significant tachypnea or conversational dyspnea. Prolonged expiratory phase also noted. CARDIOVASCULAR: Tachycardic but regular. No definite murmur notes to auscultation. GASTROINTESTINAL: The abdomen is soft. Bowel sounds are present in all quadrants. Abdomen is nontender MUSCULOSKELETAL/EXTREMITIES: There is no evidence of gross deformity full range of motion is noted in the hips and shoulders SKIN: There is no obvious evidence of any rash. There are no petechiae, pallor or cyanosis noted. NEUROLOGIC: Patient is awake alert and oriented x3 Medical Decision & Procedures ER Provider Diagnostic Interpretation: Radiology results as stated below per my review and radiologist interpretation: SINGLE VIEW CHEST CLINICAL HISTORY: Atypical chest pain. FINDINGS: An AP, portable, upright chest radiograph is compared to study dated 06/06/2017 and correlated with chest CT dated 06/02/2017. The examination is degraded by portable technique and patient rotation. The cardiomediastinal silhouette is unremarkable. Changes of chronic interstitial lung disease are similar to previous. There is multifocal patchy airspace consolidation, greatest in the right midlung and in the peripheral left lung. Small pleural effusions are suspected. No pneumothorax is seen. The bony thorax is grossly intact. IMPRESSION: 1. Changes of chronic interstitial lung disease are similar to previous. 2. There is increasingly confluent bilateral airspace consolidation as compared to the 06/06/2017 examination. Correlate clinically for evidence of pneumonia. Radiographic follow-up to resolution is recommended. 3. Suspect small pleural effusions. Electronically signed by: Yakov Sexton M.D. 06/12/2017 12:50 PM Dictated Date/Time: 06/12/2017 12:[address] SCAN OF THE CHEST WITHOUT IV CONTRAST CLINICAL HISTORY: Atypical chest pain. COMPARISON STUDY: Chest x-ray dated 06/12/2017. Chest CT scans dated 06/02/2017 and 01/24/2017. TECHNIQUE: CT scan of the thorax was performed from the thoracic inlet to the upper abdomen. Images are reviewed in the axial, sagittal, and coronal planes. IV contrast was not administered for this examination as per the referring clinician. A dose lowering technique was utilized adhering to the principles of ALARA. The examination is compromised by motion artifact. CT DOSE: 302.96 mGy.cm FINDINGS: Thyroid: The thyroid gland is heterogeneous in attenuation. There is a new low-attenuation lesion identified in the left thyroid lobe, new from 06/02/2017 end measuring up to 3.6 cm. There are surrounding inflammatory stranding. Thoracic aorta: The thoracic aorta is normal in caliber and demonstrates 4-vessel variant arch anatomy. Heart: The heart is mildly enlarged and without pericardial effusion. There are coronary artery calcifications. The pulmonary trunk is dilated, measuring 3.7 cm in transverse diameter. This suggests pulmonary artery hypertension. Lungs and pleural spaces: Evaluation of the lung parenchyma is compromised by motion artifact. No pneumothorax is identified. Suture material is seen in the right lower lobe. Changes of chronic interstitial lung disease are similar to previous. This includes extensive subpleural reticulation with diffuse groundglass consolidation seen throughout both lungs. Mild traction bronchiectasis is noted in the lower lobes. No honeycombing is identified. There is a small and multiloculated pleural collections the posterior left lung base. This demonstrates a large air-fluid levels and there is associated pleural thickening. This is new from 06/02/2017. An empyema is not excluded. Masslike foci of consolidation/nodularity have significantly increased in size from 06/02/2017. A lesion in the right midlung on image #127 measures 6.6 x 3.6 cm (previously measured 2.4 x 1.9 cm). A cavitary lesion in the left upper lobe as seen on image #91 measures 1.7 x 3.0 cm (previously measured up to 1.9 cm). A lesion in the right lower lobe demonstrates cavitation is seen on image #129 and measures 3.1 cm. Numerous additional smaller nodules are identified in both lungs. Patchy consolidation is seen throughout both lungs. Mediastinum: There is mediastinal lymphadenopathy, new as compared to 06/02/2017. A prevascular node on image #94 measures 2.9 x 2.0 cm. A precarinal node on image #98 measures 1.7 cm in short axis. A high right paratracheal node on image #59 measures 2.3 x 1.6 cm. Angelica: Hilar adenopathy is suspected but not well assessed without IV contrast. Axillae: There is no axillary lymphadenopathy. Upper abdomen: There is a tiny hiatal hernia. Partially visualized upper abdominal viscera is otherwise within normal limits. Skeletal structures: No lytic or blastic bony lesions are seen. IMPRESSION: 1. Again seen are extensive chronic parenchymal changes as above with evidence of previous surgicy/postbiopsy change. The appearance suggests chronic interstitial/fibrotic lung disease or possibly a chronic hypersensitivity pneumonitis. Correlate with lung biopsy results will be essential. 2. There is a small and multiloculated pleural collection at the left lung base. This demonstrates numerous air-fluid levels and is concerning for empyema. This is new from 06/02/2017. 3. There has been significant increase in size of numerous foci of masslike consolidation/nodularity is compared to 06/02/2017. Several of these lesions demonstrate central cavitation. Differential considerations remain septic emboli, atypical/fungal pneumonia, or possibly cavitary pneumonia. Neoplasm is considered less likely due to the rapid post exchange manager recent prior examinations. 4. Additional foci of patchy consolidation are seen throughout both lungs. 5. Mediastinal lymphadenopathy is new from 06/02/2017. 6. There is a new large low-attenuation lesion in the left thyroid lobe with surrounding inflammation. Again, the rapid change suggests infection/inflammation. Mass lesion would be impossible to exclude. 7. Additional findings as above. Electronically signed by: Yakov Sexton M.D. 06/12/2017 1:07 PM Dictated Date/Time: 06/12/2017 12:56 PM Laboratory Results 06/12/17 12:45 Red Blood Count 4.83, Mean Corpuscular Volume 84.3, Mean Corpuscular Hemoglobin 29.8, Mean Corpuscular Hemoglobin Concent 35.4, Mean Platelet Volume 10.2 06/12/17 12:45 Test 06/12/17 12:45 06/12/17 13:08 06/12/17 13:13 06/12/17 13:24 White Blood Count 29.96 K/uL (4.8-10.8) Red Blood Count 4.83 M/uL (4.7-6.1) Hemoglobin 14.4 g/dL (14.0-18.0) Hematocrit 40.7 % (42-52) Mean Corpuscular Volume 84.3 fL (80-100) Mean Corpuscular Hemoglobin 29.8 pg (25-34) Mean Corpuscular Hemoglobin Concent 35.4 g/dl (32-36) Platelet Count 436 K/uL (130-400) Mean Platelet Volume 10.2 fL (7.4-10.4) RDW Standard Deviation 48.5 fL (36.4-46.3) RDW Coefficient of Variation 15.8 % (11.5-14.5) Neutrophils % (Manual) 86.0 % Lymphocytes % (Manual) 7.0 % Monocytes % (Manual) 6.1 % Metamyelocytes % 0.9 % Neutrophils # (Manual) 25.77 K/uL (1.4-6.5) Total Absolute Neutrophils 25.77 K/uL (1.4-6.5) Lymphocytes # (Manual) 2.10 K/uL (1.2-3.4) Total Absolute Lymphocytes 2.10 K/uL (1.2-3.4) Monocytes # (Manual) 1.83 K/uL (0.11-0.59) Metamyelocytes # 0.27 K/uL (0-0) Red Blood Cell Morphology Unremarkable Prothrombin Time 13.4 SECONDS (9.0-12.0) Prothromb Time International Ratio 1.3 (0.9-1.1) Activated Partial Thromboplast Time 24.9 SECONDS (21.0-31.0) Partial Thromboplastin Ratio 1.0 Anion Gap 12.0 mmol/L (3-11) Est Creatinine Clear Calc Drug Dose 81.3 ml/min Estimated GFR () 91.5 Estimated GFR (Non- 78.9 BUN/Creatinine Ratio 19.6 (10-20) Calcium Level 9.8 mg/dl (8.5-10.1) Total Bilirubin 0.7 mg/dl (0.2-1) Aspartate Amino Transf (AST/SGOT) 30 U/L (15-37) Alanine Aminotransferase (ALT/SGPT) 100 U/L (12-78) Alkaline Phosphatase 129 U/L (45-117) Troponin I < 0.015 ng/ml (0-0.045) Pro-B-Type Natriuretic Peptide 975 pg/ml (0-450) Total Protein 8.6 gm/dl (6.4-8.2) Albumin 1.9 gm/dl (3.4-5.0) Globulin 6.7 gm/dl (2.5-4.0) Albumin/Globulin Ratio 0.3 (0.9-2) Influenza Type A (RT-PCR) Neg for Influ A (NEG) Influenza Type B (RT-PCR) Neg for Influ B (NEG) Venous Blood pH 7.44 (7.36-7.41) Venous Blood Partial Pressure CO2 44 mmHg (38.0-50.0) Venous Blood Partial Pressure O2 50 mmHg Venous Blood HCO3 29 mmol/L Venous Blood Oxygen Saturation 82.9 % Venous Blood Base Excess 4.4 mEq/L Test 06/12/17 14:45 06/12/17 15:20 Lactic Acid Level 2.8 mmol/L (0.4-2.0) Urine Color DK YELLOW Urine Appearance CLOUDY (CLEAR) Urine pH 5.0 (4.5-7.5) Urine Specific [place] 1.017 (1.000-1.030) Urine Protein TRACE (NEG) Urine Glucose (UA) NEG (NEG) Urine Ketones NEG (NEG) Urine Occult Blood NEG (NEG) Urine Nitrite NEG (NEG) Urine Bilirubin NEG (NEG) Urine Urobilinogen NEG (NEG) Urine Leukocyte Esterase NEG (NEG) Urine WBC (Auto) 1-5 /hpf (0-5) Urine RBC (Auto) 0-4 /hpf (0-4) Urine Hyaline Casts (Auto) 5-10 /lpf (0-5) Urine Epithelial Cells (Auto) 5-10 /lpf (0-5) Urine Bacteria (Auto) NEG (NEG) Urine Pathogenic Casts 0-3 GRANULAR CASTS /lpf (0) Laboratory results per my review. Medications Administered Medications (Trade) Dose Ordered Sig/Thea Route Start Time Stop Time Status Last Admin Dose Admin Albuterol/ Ipratropium (Duoneb) 3 ml NOW STAT INH 06/12/17 12:41 06/12/17 12:42 DC 06/12/17 12:57 3 ML Piperacillin Sod/ Tazobactam Sod (Zosyn Iv) 4.5 gm NOW STAT IV 06/12/17 13:11 06/12/17 13:12 DC 06/12/17 13:33 4.5 GM Sodium Chloride 1,000 ml @ 999 mls/hr Q1H1M STAT IV 06/12/17 13:17 06/12/17 14:17 DC 06/12/17 13:33 999 MLS/HR Methylprednisolone Sodium Succinate (Solu-Medrol IV) 125 mg NOW STAT IV 06/12/17 13:17 06/12/17 13:18 DC 06/12/17 13:32 125 MG Linezolid 600 mg/ Prmx 300 ml @ 300 mls/hr 1500 ONCE IV 06/12/17 15:00 06/12/17 15:59 DC 06/12/17 14:44 300 MLS/HR Doxycycline Hyclate 100 mg/ Dextrose 110 ml @ 50 mls/hr 1500 ONCE IV 06/12/17 15:00 06/12/17 16:34 DC 06/12/17 15:00 50 MLS/HR ECG Per My Interpretation Indication: SOB/dyspnea Rate (beats per minute): 137 Rhythm: sinus tachycardia Findings: other (No PVC. No acute ST segment abnormality) Comparison ECG Date: 06/01/17 Change: no significant change ED Course 1229: The patient was evaluated in room A1. A complete history and physical examination were performed. 1241: DuoNeb 3ml INH 1311: Zosyn 4.5gm IV 1316: I talked with Dr. Peterson, and he is evaluating the patient. 1317: Solu-Medrol 125mg IV, NSS 1,000 ml @ 999 mls/hr IV 1321: I discussed the patient's case with Dr. Tiffany SANTOYO Hospitalist. The patient will be evaluated for further management. 1420: I talked with Dr. Castaneda - JAROCHO, and he states that the patient needs to be transferred. 1448: I discussed the patient's case with Dr. Becca Kumar [employer]. The patient will be evaluated for further management and transferred. Medical Decision Differential diagnosis: Etiologies such as infections, reactive airway disease, pneumonia, pneumothorax , COPD, CHF, cardiac ischemia, pulmonary embolism, musculoskeletal, gastrointestinal, as well as others were entertained. Additional history is obtained from the patient's significant other. The patient's previous electronic medical records reviewed. The patient is a 46-year-old male who presented to the emergency department at the request of his primary thoracic surgeon. I received a phone call from the patient's primary thoracic surgeon. The patient has a history of a recently treated pneumothorax and he thought that this could be consistent with the patient's recurrence of pneumothorax and he was sent to the emergency department. His chest x-ray instead showed very significant infiltrative process. The patient was treated with IV fluids and IV antibiotics. He was placed on supplemental oxygen. A noncontrast CT the chest was also obtained which showed significant changes consistent with infiltrative lung disease as well as his chronic underlying interstitial fibrosis. I discussed the patient' s laboratory and radiographic studies with his thoracic surgeon as well as the on-call [facility] hospitalist. The civil engineering director was also involved in decision-making and evaluated the patient in the emergency department. Given the patient's underlying condition at this time he was felt to be a better candidate to be managed at a tertiary center. I discussed this case with the civil engineering director group at . The patient was transferred via air ambulance for further management. I discussed patient's laboratory and radiographic studies with him and his significant other. They were agreeable to transfer. Medication Reconcilliation Current Medication List: was personally reviewed by me Blood Pressure Screening Patient's blood pressure: Elevated blood pressure Monitored by the outdoor studies director. Consults Time Called: 1312 Consulting Physician: Dr. Tiffany SANTOYO Hospitalist Returned Call: 1321 I discussed the patient's case with Dr. Tiffany SANTOYO Hospitalist. The patient will be evaluated for further management. Additional Consults: Time Called: 1444 Consulted Physician: Dr. Becca Valencia Retail Leader Returned Call: 1448 Additional Comments: I discussed the patient's case with Dr. Becca Valencia Retail Leader. The patient will be evaluated for further management and transferred. Impression Primary Impression: Pneumonia Additional Impressions: Hypoxia Interstitial lung disease Loculated left lateral pneumothorax Chronic obstructive pulmonary disease Critical Care I have personally spent greater than 45 minutes of critical care time in the direct management of this patient. This includes bedside care, interpretation of diagnostic studies, and testing, discussion with consultants, patient, and family members, and other required patient management activities. This 45 minutes is in excess of all separately billable procedures. Scribe Attestation The scribe's documentation has been prepared under my direction and personally reviewed by me in its entirety. I confirm that the note above accurately reflects all work, treatment, procedures, and medical decision making performed by me. Departure Information Dispostion Transfer Acute Care Facility Referrals Cody Celis PA-C (PCP) Patient Instructions My [facility] Problem Qualifiers Primary Impression: Pneumonia Pneumonia type: due to unspecified organism Laterality: bilateral Lung location: unspecified part of lung Qualified Codes: J18.9 - Pneumonia, unspecified organism Additional Impressions: Chronic obstructive pulmonary disease COPD type: unspecified COPD Qualified Codes: J44.9 - Chronic obstructive pulmonary disease, unspecified
[2017-06-12 13:03] VITALS: O2SAT 93
--- NOTE | 2017-06-12 13:09 | DIAGNOSTIC IMAGING REPORT ---
CT SCAN OF THE CHEST WITHOUT IV CONTRAST CLINICAL HISTORY: Atypical chest pain. COMPARISON STUDY: Chest x-ray dated 06/12/2017. Chest CT scans dated 06/02/2017 and 01/24/2017. TECHNIQUE: CT scan of the thorax was performed from the thoracic inlet to the upper abdomen. Images are reviewed in the axial, sagittal, and coronal planes. IV contrast was not administered for this examination as per the referring clinician. A dose lowering technique was utilized adhering to the principles of ALARA. The examination is compromised by motion artifact. CT DOSE: 302.96 mGy.cm FINDINGS: Thyroid: The thyroid gland is heterogeneous in attenuation. There is a new low-attenuation lesion identified in the left thyroid lobe, new from 06/02/2017 end measuring up to 3.6 cm. There are surrounding inflammatory stranding. Thoracic aorta: The thoracic aorta is normal in caliber and demonstrates 4-vessel variant arch anatomy. Heart: The heart is mildly enlarged and without pericardial effusion. There are coronary artery calcifications. The pulmonary trunk is dilated, measuring 3.7 cm in transverse diameter. This suggests pulmonary artery hypertension. Lungs and pleural spaces: Evaluation of the lung parenchyma is compromised by motion artifact. No pneumothorax is identified. Suture material is seen in the right lower lobe. Changes of chronic interstitial lung disease are similar to previous. This includes extensive subpleural reticulation with diffuse groundglass consolidation seen throughout both lungs. Mild traction bronchiectasis is noted in the lower lobes. No honeycombing is identified. There is a small and multiloculated pleural collections the posterior left lung base. This demonstrates a large air-fluid levels and there is associated pleural thickening. This is new from 06/02/2017. An empyema is not excluded. Masslike foci of consolidation/nodularity have significantly increased in size from 06/02/2017. A lesion in the right midlung on image #127 measures 6.6 x 3.6 cm (previously measured 2.4 x 1.9 cm). A cavitary lesion in the left upper lobe as seen on image #91 measures 1.7 x 3.0 cm (previously measured up to 1.9 cm). A lesion in the right lower lobe demonstrates cavitation is seen on image #129 and measures 3.1 cm. Numerous additional smaller nodules are identified in both lungs. Patchy consolidation is seen throughout both lungs. Mediastinum: There is mediastinal lymphadenopathy, new as compared to 06/02/2017. A prevascular node on image #94 measures 2.9 x 2.0 cm. A precarinal node on image #98 measures 1.7 cm in short axis. A high right paratracheal node on image #59 measures 2.3 x 1.6 cm. Angelica: Hilar adenopathy is suspected but not well assessed without IV contrast. Axillae: There is no axillary lymphadenopathy. Upper abdomen: There is a tiny hiatal hernia. Partially visualized upper abdominal viscera is otherwise within normal limits. Skeletal structures: No lytic or blastic bony lesions are seen. IMPRESSION: 1. Again seen are extensive chronic parenchymal changes as above with evidence of previous surgicy/postbiopsy change. The appearance suggests chronic interstitial/fibrotic lung disease or possibly a chronic hypersensitivity pneumonitis. Correlate with lung biopsy results will be essential. 2. There is a small and multiloculated pleural collection at the left lung base. This demonstrates numerous air-fluid levels and is concerning for empyema. This is new from 06/02/2017. 3. There has been significant increase in size of numerous foci of masslike consolidation/nodularity is compared to 06/02/2017. Several of these lesions demonstrate central cavitation. Differential considerations remain septic emboli, atypical/fungal pneumonia, or possibly cavitary pneumonia. Neoplasm is considered less likely due to the rapid blade changer recent prior examinations. 4. Additional foci of patchy consolidation are seen throughout both lungs. 5. Mediastinal lymphadenopathy is new from 06/02/2017. 6. There is a new large low-attenuation lesion in the left thyroid lobe with surrounding inflammation. Again, the rapid change suggests infection/inflammation. Mass lesion would be impossible to exclude. 7. Additional findings as above. Electronically signed by: Yakov Sexton M.D. 06/12/2017 1:07 PM Dictated Date/Time: 06/12/2017 12:56 PM
[2017-06-12] MEDS ORDERED: PIPERACILLIN/TAZOBACTAM 4.5 GM/100ML D5W IV STA (13:11)
[2017-06-12 13:14] LABS: ALBUMIN 1.9 gm/dl (3.4-5.0); ALT/SGPT 100 U/L (12-78); AST/SGOT 30 U/L (15-37); BLOOD UREA NITROGEN 22 mg/dl (7-18); CALCIUM 9.8 mg/dl (8.5-10.1); CARBON DIOXIDE 27 mmol/L (21-32); CREATININE 1.12 mg/dl (0.60-1.40); GLUCOSE 145 mg/dl (70-99); POTASSIUM 4.4 mmol/L (3.5-5.1); SODIUM 131 mmol/L (136-145)
[2017-06-12] MEDS ORDERED: SODIUM CHLORIDE 0.9% 1000ML 1,000 ML IV STA (13:17)
[2017-06-12] MEDS ORDERED: METHYLPREDNISOLONE 125 MG VIAL IV STA (13:17)
[2017-06-12 13:18] LABS: INR 1.3 (0.9-1.1); PTT PATIENT 24.9 SECONDS (21.0-31.0)
[2017-06-12 13:19] LABS: ALKALINE PHOSPHATASE 129 U/L (45-117); TOTAL PROTEIN 8.6 gm/dl (6.4-8.2)
[2017-06-12] MEDS ORDERED: ACETCAP13 PO (14:02)
[2017-06-12] MEDS ORDERED: MULT-220 PO (14:02)
[2017-06-12] MEDS ORDERED: CHOL1000 PO (14:02)
[2017-06-12] MEDS ORDERED: OSEL75CA23 PO (14:02)
[2017-06-12] MEDS ORDERED: ASCO500C43 PO (14:02)
[2017-06-12 14:05] VITALS: O2SAT 85; Ht 167.6 cm; Wt 76.9 kg
[2017-06-12 14:13] LABS: INFLUENZA A PCR Neg for Influ A (NEG); INFLUENZA B PCR Neg for Influ B (NEG)
--- NOTE | 2017-06-12 14:33 | SURGICAL CONSULTATION ---
DATE OF CONSULTATION: 06/12/2017 REASON FOR CONSULTATION: Loculated fluid, left chest, possible empyema. HISTORY OF PRESENT ILLNESS: Collins Adan is a 46-year-old man who is well known to me. The patient developed marked hypoxia and shortness of breath and was sent to me by Dr. Diego Howard and Mr. Harpreet Celis, from pulmonary. On 03/25/2017, I took the patient to the operating room and did a right thoracoscopy with a wedge resection for biopsy. He did well with this and was discharged the following day. I saw him back in the office, the next week he looks good. He had been started on steroids. His pathology was interesting. There was a component of fibrosis but appeared to be hypersensitivity reaction. I saw the patient back when he was admitted with shortness of breath that has been going on for about a week which had worsened and he was found to have a large pneumothorax. This was about 2 months after he was discharged from his initial surgery. He was also on the other side. On 06/01/2017, I inserted a chest tube. He had a complete pneumothorax. His CAT scan actually gotten a bit better from an infiltrative perspective, but he did have cavitary lesions that did not have before. He was in the hospital for 5 days, we got his chest tube out. I was happy with that; however, his called me today on 06/22/2017 and stated that his heart rate was up in the 130s and he was hypoxic. There have been people who have been "sick" in the house and he developed a fever with a productive cough. He then began having left-sided chest pain. CT scan was significant for fluid and it looked like a small loculated pneumothorax. I do not think this represents a gas-forming organism. I think this is probably residual from his pneumothorax from last week. At any rate, he is sick. His white counts were 9,000, although he is over 29,000 even though he is on steroids. His heart rates up in the 130s. The patient needs to be admitted to a monitored bed. I am going to keep him n.p.o. tonight. I will discuss this with Dr. Villarreal and Dr. Howard from a pulmonary standpoint. I may need to take him to the operating room for thoracoscopy decortication, possible decortication and evacuation of these contents as well as perhaps a wedge resection of these cavitary lesions. PAST MEDICAL HISTORY: 1. Chronic hypersensitive pneumonitis/possible fibrosis. 2. Hypercholesterolemia. 3. Left spontaneous pneumothorax, treated with a chest tube. 4. History of cigarette smoking in the past but quit several years ago. PAST SURGICAL HISTORY: 1. Left thoracostomy tube - 06/01/2017. 2. Right video-assisted thoracoscopy with lung biopsy - 03/25/2017. 3. Umbilical herniorrhaphy. 4. Hemorrhoidectomy. MEDICATIONS: 1. Acetylcysteine 600 mg daily. 2. Prednisone. 3. Zocor. 4. Oxycodone as needed for pain. 5. Multivitamins. ALLERGIES: No known drug allergies. SOCIAL HISTORY: The patient lives with his girlfriend. He has just moved into a new house. 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 FAMILY MEDICAL HISTORY: The patient had father who suffered from peripheral vascular disease and was a smoker. REVIEW OF SYSTEMS: The patient actually was doing "better" according to his for the last several days until just a few days ago when he became quite ill with what appeared to be the signs and symptoms consistent with an upper respiratory infection. He had been eating well until that point. He became markedly short of breath. He denied any wound breakdown. He had no neurologic events. He had no visual or auditory changes. He appears to be quite sick. PHYSICAL EXAMINATION: GENERAL: This is a disheveled-appearing male who is on oxygen. He is on 5 liters with 91% saturations. He stands 5 feet 6 inches tall and weighed 169 pounds. HEENT: His extraocular movements are intact. His sclerae are bit injected. He is struggling to breathe. Tongue is midline. I detect no pharyngeal lesions per se. NECK: Supple. LUNGS: Upon auscultation of his lungs, he does have rhonchi. I heard some rales, but I hear no wheezing. He is tachycardic at 130 beats per minute, appears to be in sinus rhythm on monitor. ABDOMEN: Soft. EXTREMITIES: He has no peripheral edema. He is diaphoretic. NEUROLOGICAL: He has no focal deficits. ASSESSMENT AND PLAN: Questionable left empyema. Continue antibiotics, put him on steroids and see if we can get him settle down a bit. I may have to take him to the operating room tomorrow. I would not put a chest tube in this fluid at this point. There is not really very much in the way of fluid here and if we are going to drain him, he is going to require a bit more definitive management.
--- NOTE | 2017-06-12 14:53 | Critical Care Consultation ---
Critical Care Consultation Date of Consultation: Jun 12, 2017. Attending Physician: Melvin Reason for Consultation: Acute hypoxic respiratory failure in the setting of hypersensitivity pneumonitis with probable lung abscess History of Present Illness Patient is a 46-year-old male with significant past medical history for interstitial lung disease with findings most consistent with hypersensitivity pneumonitis based on pathology report from [facility]. Most recently patient was admitted June 01 for spontaneous pneumothorax which was successfully treated with a chest tube. Patient normally wears 2 L of oxygen and reportedly keeps his sats greater than 98% who had rapid worsening of shortness of breath and increasing oxygen requirements in the last 24-48 hours. Patient's reports that he has felt warm but they have not in fact taken his temperature. Is also complaining of a rapid heart rate at this time. Patient was seen in the emergency department by thoracic surgery and I was asked to evaluate the patient for ICU admission. Past Medical/Surgical History Interstitial lung disease Hypersensitivity pneumonitis Hyperlipidemia Probable lung abscess Social History Smoking Status: Former Smoker (Approximately 86-[id number]-ugce history) Alcohol Use: none Drug Use: none Marital Status: Housing Status: lives with family Allergies Coded Allergies: No Known Allergies (Unverified , 06/12/17) Home Medications Scheduled Acetylcysteine (Nutrient) (Nac 600), 1 CAP PO BID Ascorbic Acid (Vitamin C 500 mg), 1 CAP PO BID Cholecalciferol (Vitamin D3), 1 TAB PO QAM Multiple Vitamins W/ Minerals (Multi For Him), 1 TAB PO QAM Oseltamivir Phosphate (Tamiflu), 75 MG PO BID Prednisone (Prednisone), 20 MG PO TID Simvastatin (Zocor), 10 MG PO HS Current Inpatient Medications Current Inpatient Medications Medications (Trade) Dose Ordered Sig/Thea Route Start Time Stop Time Status Last Admin Dose Admin Linezolid 600 mg/ Prmx 300 ml @ 300 mls/hr Q12 IV 06/12/17 21:00 06/19/17 20:59 UNV Linezolid 600 mg/ Prmx 300 ml @ 300 mls/hr 1500 ONCE IV 06/12/17 15:00 06/12/17 15:59 Doxycycline Hyclate 100 mg/ Dextrose 110 ml @ 50 mls/hr BID IV 06/12/17 21:00 06/19/17 20:59 UNV Doxycycline Hyclate 100 mg/ Dextrose 110 ml @ 50 mls/hr 1500 ONCE IV 06/12/17 15:00 06/12/17 17:11 Review of Systems Constitutional: + fever (Subjective) Respiratory: + cough, + shortness of breath, + dyspnea on exertion, No sputum, No wheezing, No hemoptysis Cardiovascular: No chest pain, No orthopnea Abdomen: No pain, No nausea Physical Exam Date Time Temp Pulse Resp B/P (MAP) Pulse Ox O2 Delivery O2 Flow Rate FiO2 06/12/17 14:22 110 36 159/88 87 Mask 6.0 06/12/17 14:17 112 34 88 Mask 5.0 06/12/17 14:05 85 Mask 5.0 06/12/17 13:38 123 36 91 Mask 5.0 06/12/17 13:35 90 Mask 5.0 06/12/17 13:23 127 39 89 Mask 5.0 06/12/17 13:16 127/91 06/12/17 13:08 127 35 93 Mask 5.0 06/12/17 13:03 125 34 93 Nasal Cannula 5.0 06/12/17 13:03 93 Nebulizer 5.0 06/12/17 13:01 117/80 06/12/17 12:56 118/85 06/12/17 12:48 30 06/12/17 12:41 88 Nasal Cannula 6.0 06/12/17 12:39 137 06/12/17 12:37 178/139 06/12/17 12:25 36.8 142 36 119/73 73 Nasal Cannula 3.0 General Appearance: moderate distress Head: normocephalic, atraumatic Eyes: PERRLA, no discharge Neck: no tenderness, trachea midline, no stridor, supple Respiratory: accessory muscle use, respiratory distress (Mild), rhonchi ( Scattered bilaterally) Cardiovasular: normal S1S2, no M/G/R, irregular rate (Tachycardia), other ( Sinus tachycardia on bedside monitor) Abdomen: non tender, normal bowel sounds Upper Extremities: no edema Neuro: alert, oriented x 3, other (No focal motor deficits) Psychiatric: normal affect Laboratory Results Last 24 Hours Test 06/12/17 12:45 06/12/17 13:08 06/12/17 13:13 06/12/17 13:24 White Blood Count 29.96 K/uL Red Blood Count 4.83 M/uL Hemoglobin 14.4 g/dL Hematocrit 40.7 % Mean Corpuscular Volume 84.3 fL Mean Corpuscular Hemoglobin 29.8 pg Mean Corpuscular Hemoglobin Concent 35.4 g/dl Platelet Count 436 K/uL Mean Platelet Volume 10.2 fL RDW Standard Deviation 48.5 fL RDW Coefficient of Variation 15.8 % Neutrophils % (Manual) 86.0 % Lymphocytes % (Manual) 7.0 % Monocytes % (Manual) 6.1 % Metamyelocytes % 0.9 % Neutrophils # (Manual) 25.77 K/uL Total Absolute Neutrophils 25.77 K/uL Lymphocytes # (Manual) 2.10 K/uL Total Absolute Lymphocytes 2.10 K/uL Monocytes # (Manual) 1.83 K/uL Metamyelocytes # 0.27 K/uL Red Blood Cell Morphology Unremarkable Prothrombin Time 13.4 SECONDS Prothromb Time International Ratio 1.3 Activated Partial Thromboplast Time 24.9 SECONDS Partial Thromboplastin Ratio 1.0 Sodium Level 131 mmol/L Potassium Level 4.4 mmol/L Chloride Level 92 mmol/L Carbon Dioxide Level 27 mmol/L Anion Gap 12.0 mmol/L Blood Urea Nitrogen 22 mg/dl Creatinine 1.12 mg/dl Est Creatinine Clear Calc Drug Dose 81.3 ml/min Estimated GFR () 91.5 Estimated GFR (Non- 78.9 BUN/Creatinine Ratio 19.6 Random Glucose 145 mg/dl Calcium Level 9.8 mg/dl Total Bilirubin 0.7 mg/dl Aspartate Amino Transf (AST/SGOT) 30 U/L Alanine Aminotransferase (ALT/SGPT) 100 U/L Alkaline Phosphatase 129 U/L Troponin I < 0.015 ng/ml Pro-B-Type Natriuretic Peptide 975 pg/ml Total Protein 8.6 gm/dl Albumin 1.9 gm/dl Globulin 6.7 gm/dl Albumin/Globulin Ratio 0.3 Influenza Type A (RT-PCR) Neg for Influ A Influenza Type B (RT-PCR) Neg for Influ B Venous Blood pH 7.44 Venous Blood Partial Pressure CO2 44 mmHg Venous Blood Partial Pressure O2 50 mmHg Venous Blood HCO3 29 mmol/L Venous Blood Oxygen Saturation 82.9 % Venous Blood Base Excess 4.4 mEq/L Test 06/12/17 14:17 Diagnostic Results I have reviewed the radiology report as well as the images of the CT scan of the chest obtained today and compared those with CT scan images dated June 02, 2017 Assessment & Plan Reason Critically Ill: Acute hypoxic respiratory failure secondary to lung abscess and hypersensitivity pneumonitis, possible/probable severe sepsis PLAN: Neuro: Resp: Acute hypoxic respiratory failure * Currently requiring 8 L Via Oxymizer mask continue with the most non-invasive mode of oxygen supplementation Recent spontaneous pneumothorax * This complicates patient's rapid transferred via helicopter EMS. * At this point I feel hesitant to place the patient on high flow oxygen as well as CPAP BiPAP * If the patient has further decompensation I would opt for intubation and mechanical ventilation to attempt oxygenate and ventilate the patient in a pressure-controlled setting by ARDS net guidelines * Patient already given 125 mg Solu-Medrol Probable lung abscess * Empiric coverage with Zyvox for possible MRSA pneumonia * Lung biopsy from March 22, 2017 did not demonstrate any aspects of fungal infection nor acid-fast bacteria * Bronchial washings obtained March 01, 2017 revealed few gram-positive cocci , there is no mention of species, I anticipate this was likely colonization * I discussed the patient with the thoracic surgeon, Dr. Peterson patient is at high risk for complications * Will need definitive surgical management for empyema vs lung abscess, at high risk for bronchopleural fistula Acute respiratory distress syndrome * Given complexity of patient's characteristics he would be [facility] availability CV: Tachycardia * Crystalloid administration 30 cc/kg * Lactate pending Elevated BNP Probable cor pulmonale secondary to underlying lung disease Fluids/Renal: Hyponatremia Hypochloremia Hypoalbuminemia Mixed respiratory acidosis with metabolic alkalosis noted on ABG ID: Sepsis secondary to empyema versus lung abscess * Influenza negative * Coverage for MRSA with Zyvox, atypical coverage with doxycycline, gram- negative coverage with Zosyn Leukocytosis GI/Nutrition: Elevated ALT and alkaline phosphatase Endocrine: Mild hyperglycemia: 145 I discussed the case with Dr. Allen of hospitalist medicine, Dr. Peterson of thoracic surgery, Dr. Charles of emergency medicine. I have personally spent 35 minutes of critical care time in the direct management of this patient. This is a life/limb threatening event. This includes time spent evaluating patient, direct bedside care, chart review, placing orders, interpretation of diagnostic studies, discussion with consultants, patient, and/or family members regarding treatment decisions, as well as other required patient management activities. This time is exclusive of all separately billable procedures, and teaching time and separate from and in addition to any other critical care service time.
--- NOTE | 2017-06-12 14:55 | Medical Consult ---
Consultation Date of Consultation: Jun 12, 2017. Attending Physician: Dr. Adan Allen Reason for Consultation: Admission History of Present Illness Mr. Adan is a 46 y/o male with PMHx of Chronic Hypersensitivity Pneumonitis, Severe Restrictive Lung Disease/Interstitial Lung Disease (PFTs August 2016), HLD, S/P VATS with Wedge Resection (Mar 2017), and Recent Spontaneous PTX S/P Chest Tube on 06/01. Patient reports having significant hypoxia with shortness of breath and grunting respirations and was found to have a pneumothorax approximately 6 days ago. He had successful decompression with left-sided chest tube which was ultimately removed. Patient reports that for a couple days he felt close to his normal self. However, he has had long-standing lung issues and understands that complete resolution of his lung issues is likely to not occur. He states on Tuesday he developed a sore throat and productive cough. Reports multiple exposures to sick contacts. Patient's reports that he is normally on 1.5-2 L of oxygen at home with saturations at approximately 98%. However, today she states she was not able to get his saturations above 90 and she noticed a rapid heart rate. Due to his acute symptoms he does report taking 3 doses of Tamiflu prior to presentation. He also complains of left-sided chest pain which is somewhat worsened with respirations. states that he has felt warm but no documented fevers. Patient states that he has had intermittent chills. Upon presentation to the ED, patient is tachycardic and tachypneic. Saturations were as low as 73% and currently with oxygen mask at 6 L only satting at approximately 85%. Given his recent pneumothorax using more noninvasive measures such as CPAP/BiPAP could compromise his respiratory status. CT of the chest reveals small multiloculated pleural collections in the left base with numerous air filled levels which questions loculated pneumothorax versus empyema. CT also reveals numerous foci of masslike consolidations with central cavitation which raise the question of septic emboli versus fungal/atypical pneumonia. White blood cell count is 29 which patient has been on outpatient steroids. VBG reveals mild alkalosis however PCO2 44, PO2 50, HCO3 29. Anion gap 12. Creatinine appropriate at 1.12 with GFR 78. ALT elevated at 100 with PT 13.4 and INR 1.3 no documented liver disease may be the result of some right-sided heart failure. BNP 975. Discussed the case with Dr. Charles and Dr. Castaneda. Given the complex nature of his presentation and current clinical status, would recommend transfer to tertiary care center. After discussion with entertainment usher recommendation would be for [facility] given ECMO capabilities. While awaiting transfer , will treat for suspected MRSA pneumonia and cover for atypicals. He will receive Zosyn, Zyvox, and Doxycycline. He was initially treated with Solu- Medrol 125 mg IV 1 dose and DuoNeb nebulizer. Past Medical/Surgical History 1. Chronic Hypersensitivity Pneumonitis 2. Severe Restrictive Lung Disease/Interstitial Lung Disease 3. HLD 4. S/P VATS with Wedge Resection (2016) 5. Spontaneous Pneumothorax S/P Family History 1. Allen's Disease Social History Smoking Status: Former Smoker Smokeless Tobacco Use: No Alcohol Use: none Drug Use: none Marital Status: Housing Status: lives with family Allergies Coded Allergies: No Known Allergies (Unverified , 06/12/17) Current Inpatient Medications Current Inpatient Medications Medications (Trade) Dose Ordered Sig/Thea Route Start Time Stop Time Status Last Admin Dose Admin Linezolid 600 mg/ Prmx 300 ml @ 300 mls/hr Q12 IV 06/12/17 21:00 06/19/17 20:59 UNV Linezolid 600 mg/ Prmx 300 ml @ 300 mls/hr 1500 ONCE IV 06/12/17 15:00 06/12/17 15:59 Doxycycline Hyclate 100 mg/ Dextrose 110 ml @ 50 mls/hr BID IV 06/12/17 21:00 06/19/17 20:59 UNV Doxycycline Hyclate 100 mg/ Dextrose 110 ml @ 50 mls/hr 1500 ONCE IV 06/12/17 15:00 06/12/17 17:11 Review of Systems Constitutional: + chills, + fatigue ENT: + sore throat, No nasal symptoms, No trouble swallowing Respiratory: + cough, + sputum, + shortness of breath Cardiovascular: + chest pain (L sided), No orthopnea Abdomen: No pain, No nausea, No vomiting, No diarrhea, No constipation Musculoskeletal: No swelling, No calf pain Genitourinary - Male: No dysuria Hematologic / Lymphatic: No abnormal bleeding/bruising Integumentary: + rash (mild pin-point erythematous lesions around chest tube incision (states this is from steroids)) Physical Exam Date Time Temp Pulse Resp B/P (MAP) Pulse Ox O2 Delivery O2 Flow Rate FiO2 06/12/17 14:22 110 36 159/88 87 Mask 6.0 06/12/17 14:17 112 34 88 Mask 5.0 06/12/17 14:05 85 Mask 5.0 06/12/17 13:38 123 36 91 Mask 5.0 06/12/17 13:35 90 Mask 5.0 06/12/17 13:23 127 39 89 Mask 5.0 06/12/17 13:16 127/91 06/12/17 13:08 127 35 93 Mask 5.0 06/12/17 13:03 125 34 93 Nasal Cannula 5.0 06/12/17 13:03 93 Nebulizer 5.0 06/12/17 13:01 117/80 06/12/17 12:56 118/85 06/12/17 12:48 30 06/12/17 12:41 88 Nasal Cannula 6.0 06/12/17 12:39 137 06/12/17 12:37 178/139 06/12/17 12:25 36.8 142 36 119/73 73 Nasal Cannula 3.0 General Appearance: + severe distress, + pertinent finding (ashened/mildly jaundiced; grunting respirations) Eyes: sclerae normal ENT: hearing grossly normal, + pertinent finding (unable to assess through due to respiratory condition/mask) Neck: supple, no JVD, trachea midline, + adenopathy present (L anterior cervical chain with tenderness) Respiratory/Chest: + respiratory distress, + decreased breath sounds (minimal air movement), + accessory muscle use (heaving; grunting breath sounds), + pertinent finding (well-approximated incision (previous chest tube) without drainage; pinpoint erythematous unraised lesions around site) Cardiovascular: + tachycardia Abdomen/GI: normal bowel sounds, non tender, soft Extremities/Musculoskelatal: no pedal edema Neurologic/Psych: alert, oriented x 3 Skin: + pertinent finding (ashen color; mildy jaundiced appearing) Laboratory Results Last 24 Hours Test 06/12/17 12:45 06/12/17 13:08 06/12/17 13:13 06/12/17 13:24 White Blood Count 29.96 K/uL Red Blood Count 4.83 M/uL Hemoglobin 14.4 g/dL Hematocrit 40.7 % Mean Corpuscular Volume 84.3 fL Mean Corpuscular Hemoglobin 29.8 pg Mean Corpuscular Hemoglobin Concent 35.4 g/dl Platelet Count 436 K/uL Mean Platelet Volume 10.2 fL RDW Standard Deviation 48.5 fL RDW Coefficient of Variation 15.8 % Neutrophils % (Manual) 86.0 % Lymphocytes % (Manual) 7.0 % Monocytes % (Manual) 6.1 % Metamyelocytes % 0.9 % Neutrophils # (Manual) 25.77 K/uL Total Absolute Neutrophils 25.77 K/uL Lymphocytes # (Manual) 2.10 K/uL Total Absolute Lymphocytes 2.10 K/uL Monocytes # (Manual) 1.83 K/uL Metamyelocytes # 0.27 K/uL Red Blood Cell Morphology Unremarkable Prothrombin Time 13.4 SECONDS Prothromb Time International Ratio 1.3 Activated Partial Thromboplast Time 24.9 SECONDS Partial Thromboplastin Ratio 1.0 Sodium Level 131 mmol/L Potassium Level 4.4 mmol/L Chloride Level 92 mmol/L Carbon Dioxide Level 27 mmol/L Anion Gap 12.0 mmol/L Blood Urea Nitrogen 22 mg/dl Creatinine 1.12 mg/dl Est Creatinine Clear Calc Drug Dose 81.3 ml/min Estimated GFR () 91.5 Estimated GFR (Non- 78.9 BUN/Creatinine Ratio 19.6 Random Glucose 145 mg/dl Calcium Level 9.8 mg/dl Total Bilirubin 0.7 mg/dl Aspartate Amino Transf (AST/SGOT) 30 U/L Alanine Aminotransferase (ALT/SGPT) 100 U/L Alkaline Phosphatase 129 U/L Troponin I < 0.015 ng/ml Pro-B-Type Natriuretic Peptide 975 pg/ml Total Protein 8.6 gm/dl Albumin 1.9 gm/dl Globulin 6.7 gm/dl Albumin/Globulin Ratio 0.3 Influenza Type A (RT-PCR) Neg for Influ A Influenza Type B (RT-PCR) Neg for Influ B Venous Blood pH 7.44 Venous Blood Partial Pressure CO2 44 mmHg Venous Blood Partial Pressure O2 50 mmHg Venous Blood HCO3 29 mmol/L Venous Blood Oxygen Saturation 82.9 % Venous Blood Base Excess 4.4 mEq/L Test 06/12/17 14:17 Assessment & Plan Acute Hypoxic Respiratory Failure 2/2 Empyema vs Possible MRSA PNA - He is in severe respiratory distress with grunting respirations and saturations at approximately 85% with 6 L oxygen mask - Given his recent pneumothorax - there is concern for utilizing further noninvasive measures such as BiPAP and CPAP given pressure gradients that may worsen his respiratory condition - If patient were to further decompensate - will likely need mechanical ventilation - Discussed with ICU, Dr. Castaneda, recommendations for transfer to [facility] given the possibility of possible ECMO Sepsis / Above - Zosyn, Zyvox, and Doxycline - broad-spectrum coverage for possible MRSA pneumonia and atypical coverage - Lactic acid 2.8 Elevated ALT/INR: - No documented liver disease -given chronic respiratory compromise and mildly elevated BNP - this this may be related to some right-sided heart failure Possible Cor Pulmonale: - No echocardiogram on file - however this may explain the above elevated ALT Recent Spontaneous PTX S/P Chest Tube 06/01-: Chronic Hypersensitivity Pneumonitis/Severe Restrictive Lung Disease/ Interstitial Lung Disease: - Follows with Dr. Pino and Cody Celis PA-C Disposition: - Transfer to tertiary care center - [facility] I have personally spent 45 minutes of critical care time. This includes chart review, patient evaluation, coordination with consultants, therapeutic intervention, and updating patient and family on current care plan. Additional Copies To Cody Celis PA-C; Kaleb Pino MD; Hayden Ayala D.O.
[2017-06-12] MEDS ORDERED: LINEZOLID / D5W 600 MG in PREMIXED IN D5W 300 ML IV ONE (15:00)
[2017-06-12] MEDS ORDERED: DOXYCYCLINE IV 100 MG in DEXTROSE 5% 100ML 100 ML IV ONE (15:00)
[2017-06-12 15:34] VITALS: BP 129/80; PULSE 100; O2SAT 98
[2017-06-12] MEDS ORDERED: LINEZOLID / D5W 600 MG in PREMIXED IN D5W 300 ML IV SCH (21:00)
[2017-06-12] MEDS ORDERED: DOXYCYCLINE IV 100 MG in DEXTROSE 5% 100ML 100 ML IV SCH (21:00)
[2017-06-15 12:23] LABS: QUANTIFERON INDETERMINATE (NEGATIVE); QUANTIFERON NIL 0.06 IU/ML
== END 2017-06-12 15:52 | disposition short-term general hospital (02) ==
LOC: C.EDB 12:19
DX: J18.9 Pneumonia, unspecified organism (principal); J84.9 Interstitial pulmonary disease, unspecified; R09.02 Hypoxemia; J93.83 Other pneumothorax; J44.9 Chronic obstructive pulmonary disease, unspecified; E78.5 Hyperlipidemia, unspecified; E78.00 Pure hypercholesterolemia, unspecified; Z87.891 Personal history of nicotine dependence; Z79.52 Long term (current) use of systemic steroids; Z79.899 Other long term (current) drug therapy